=== PATIENT | female | born 1935 | race Caucasian/White ===

== ENCOUNTER 2016-12-27 10:13 | Inpatient (IN) | payer MEDICARE, OTHER ==
[~2016-12-27] VITALS: Ht 165.1 cm; Wt 109.8 kg
[~2016-12-27 10:13] MED LIST: HEPARIN 1,000 UNITS/ML 10ML VIAL (FOR RADIOLOGY& DIALYSIS ONLY) As Ordered ONE; ISOVUE-300 61% 50ML VIAL (Q9967) As Ordered ONE; LIDOCAINE 2% MDV 20 ML VIAL As Ordered ONE; MIDAZOLAM INJ 2 MG/2 ML VIAL (J2250) As Ordered ONE; PROTAMINE SULF INJ 50 MG/5 ML VIAL (J2720) As Ordered ONE; fentaNYL 100 MCG/2 ML INJECTION (J3010) As Ordered ONE
[2016-12-27] MEDS ORDERED: ISOVUE-300 61% 50ML VIAL (Q9967) As Ordered ONE (10:46)
[2016-12-27] MEDS ORDERED: LIDOCAINE 2% MDV 20 ML VIAL As Ordered ONE (11:03)
[2016-12-27] MEDS ORDERED: fentaNYL 100 MCG/2 ML INJECTION (J3010) As Ordered ONE (11:03)
[2016-12-27] MEDS ORDERED: MIDAZOLAM INJ 2 MG/2 ML VIAL (J2250) As Ordered ONE (11:03)
[2016-12-27 14:20] VITALS: BP 144/95
[2016-12-27] MEDS: PIPERACILLIN/TAZOBACTAM SOD 3.375 GM in D5W MINI-BAG PLUS 50 ML IV SCH ×2 (14:58→18:37)
[2016-12-27] MEDS: NORCO, ANEXSIA 5/325MG TABLET (HYDROcodone/ACETAMINOPHEN) PO PRN (14:58)
[2016-12-27] MEDS ORDERED: INSUHUMDS SC (15:40)
[2016-12-27] MEDS ORDERED: GABA-279 PO (15:40)
[2016-12-27] MEDS ORDERED: ASPI325T24 PO (15:40)
[2016-12-27] MEDS ORDERED: ZOCO40TA PO (15:40)
[2016-12-27] MEDS ORDERED: GLIP5TAB8 PO (15:40)
[2016-12-27] MEDS ORDERED: LISI-542 PO (15:40)
[2016-12-27] MEDS ORDERED: SENN8.6T7 PO (15:40)
[2016-12-27] MEDS ORDERED: METO25TA4 PO (15:40)
[2016-12-27] MEDS ORDERED: INSULANT SC (15:40)
[2016-12-27] MEDS ORDERED: FURO40TA2 PO (15:40)
[2016-12-27] MEDS ORDERED: SPIR25TA2 PO (15:40)
[2016-12-27] MEDS ORDERED: TYLE325T5 PO (15:40)
[2016-12-27] MEDS ORDERED: LEVO75TA34 PO (15:40)
[2016-12-27 16:59] LABS: BASO % 0.3 % (0.0-1.0); EOS # 0.2 K/mm3 (0.0-0.50); EOS % 1.9 % (0.0-3.0); LARGE UNSTAINED CELL # 0.1 K/mm3 (0.0-0.4); LARGE UNSTAINED CELL % 1.1 % (0.0-4.0); LYMPH # 1.8 K/mm3 (1.5-4.5); LYMPH % 15.1 % (24.0-44.0); MEAN CORPUSCULAR HEMOGLOBIN 32.3 pg (27.0-33.0); MEAN CORPUSCULAR HGB CONC 33.3 g/dl (32.0-36.5); MEAN CORPUSCULAR VOLUME 96.8 fl (80.0-96.0); MONO # 0.5 K/mm3 (0.0-0.8); NEUTROPHILS # 8.7 K/mm3 (1.8-7.7); NEUTROPHILS % 77.5 % (36.0-66.0); PLATELET COUNT, AUTOMATED 338 k/mm3 (150-450); RED CELL DISTRIBUTION WIDTH 12.3 % (11.5-14.5); WHITE BLOOD COUNT 11.2 K/mm3 (4.0-10.0)
[2016-12-27 17:24] LABS: ALBUMIN/GLOBULIN RATIO 0.86 (1.00-1.93); BILIRUBIN,TOTAL 0.4 MG/DL (0.2-1.0); CALCIUM LEVEL 8.8 MG/DL (8.8-10.2); CREATININE FOR GFR 1.37 MG/DL (0.55-1.02); GLOMERULAR FILTRATION RATE 39.5 (>32); TOTAL PROTEIN 6.5 GM/DL (6.4-8.2)
[2016-12-27 17:27] LABS: POTASSIUM SERUM 5.2 MEQ/L (3.5-5.1)
[2016-12-27] MEDS ORDERED: GLUCAGON FOR INJ 1 MG VIAL (J1610) SC PRN ×2 (18:00→18:30)
[2016-12-27] MEDS ORDERED: GLUCOSE 4 GM CHEW TABLET PO PRN ×2 (18:00→18:30)
[2016-12-27] MEDS ORDERED: DEXTROSE 50% 50 ML SYRINGE IV PRN ×2 (18:00→18:30)
[2016-12-27] MEDS: FUROSEMIDE 40 MG TAB PO SCH ×2 (21:00→23:02)
[2016-12-27 22:00] VITALS: BP 140/67
[2016-12-27] MEDS: SIMVASTATIN 40 MG TAB PO SCH (23:00)
[2016-12-27] MEDS: GABAPENTIN 100 MG CAP PO SCH (23:01)
[2016-12-27] MEDS: ACETAMINOPHEN 325 MG TAB PO SCH (23:01)
[2016-12-27] MEDS: HumaLOG INSULIN (NovoLOG) PER UNIT SC SCH (23:03)
[2016-12-27] MEDS: METOPROLOL TART 25 MG TABLET PO SCH (23:03)
[2016-12-27] MEDS: LEVEMIR (INSULIN DETEMIR) 1 UNITS/0.01ML SC SCH (23:04)
[2016-12-28] MEDS: PIPERACILLIN/TAZOBACTAM SOD 3.375 GM in D5W MINI-BAG PLUS 50 ML IV SCH ×4 (02:01→17:41)
[2016-12-28 06:00] VITALS: BP 143/68
[2016-12-28] MEDS: LEVOTHYROXINE 75MCG TABLET (0.075MG) PO SCH (06:44)
[2016-12-28] MEDS: NORCO, ANEXSIA 5/325MG TABLET (HYDROcodone/ACETAMINOPHEN) PO PRN (07:45)
[2016-12-28] MEDS: HumaLOG INSULIN (NovoLOG) PER UNIT SC SCH ×4 (08:45→21:00)
[2016-12-28] MEDS ORDERED: MORPHINE 2 MG/ML 1ML SYRINGE As Ordered ONE (09:01)
[2016-12-28] MEDS: ASPIRIN ENTERIC 325 MG TAB PO SCH (09:04)
[2016-12-28] MEDS: METOPROLOL TART 25 MG TABLET PO SCH ×2 (09:04→20:35)
[2016-12-28] MEDS: MORPHINE 2 MG/ML 1ML SYRINGE IV PRN (09:04)
[2016-12-28] MEDS: ACETAMINOPHEN 325 MG TAB PO SCH ×2 (09:05→20:30)
[2016-12-28] MEDS: LISINOPRIL 5 MG TAB PO SCH (09:05)
[2016-12-28] MEDS: FUROSEMIDE 40 MG TAB PO SCH ×2 (09:05→20:35)
[2016-12-28] MEDS: SPIRONOLACTONE 25 MG TAB PO SCH (09:05)
[2016-12-28] MEDS: glipiZIDE (GLUCOTROL) 5 MG TAB PO SCH (09:05)
[2016-12-28] MEDS: SENOKOT S TAB PO SCH (09:06)
--- NOTE | 2016-12-28 12:14 | HPEPDOC ---
General Date of Admission Dec 27, 2016 at 12:49 Attending Physician: Dallas hSi MD Chief Complaint Left heel gangrene and left lower extremity cellulitis. Source: Patient, Family, Old records Exam Limitations: No limitations History of Present Illness Patient is a 81-year-old female who developed a left heel ulcer and gangrene as well as gangrenous ulcer on the tip of the left first toe after a myocardial infarction in November 2015. Patient was referred for evaluation of her arterial inflow to her left lower extremity. Patient underwent an angiogram which showed superficial femoral artery occlusion with reconstitution of the above-knee popliteal artery. The patient's left heel wound was evaluated prior to the angiogram and was noted to be foul-smelling and have a significant amount of gangrenous chronic tissue. The patient also has evidence of venous insufficiency in both lower extremities. And there is some mild redness in the right lower extremity but not as significant as in the left which is cellulitic. After the angiogram was discussed with the patient and her family about being admitted to the hospital undergoing a left heel debridement to which they agreed. Home Medications Scheduled Acetaminophen (Tylenol) 325 Mg Tab, 650 MG PO BID, (Reported) Aspirin (Aspirin EC) 325 Mg Tabec, 325 MG PO DAILY, (Reported) Docusate Sod/Senna (Senna S 8.6-50 mg) 1 Tab Tab, 1 TAB PO DAILY, (Reported) Furosemide (Furosemide) 40 Mg Tab, 40 MG PO BID, (Reported) Gabapentin (Gabapentin) 100 Mg Cap, 200 MG PO QHS, (Reported) Glipizide (Glipizide) 5 Mg Tab, 5 MG PO DAILY, (Reported) Insulin Glargine (Lantus) 1 Units/0.01 Ml Susp, 40 UNITS SC QHS, (Reported) Insulin Human Lispro (Humalog) 1 Units/0.01 Ml Inj, 0 SC TID, (Reported) PER SLIDING SCALE Levothyroxine Sodium (Levoxyl) 75 Mcg Tab, 75 MCG PO DAILY, (Reported) Lisinopril (Lisinopril) 5 Mg Tab, 5 MG PO DAILY, (Reported) Metoprolol Tartrate (Metoprolol Tartrate) 25 Mg Tab, 25 MG PO BID, (Reported) Simvastatin - High Dose (Zocor) 40 Mg Tab, 40 MG PO QHS, (Reported) Spironolactone (Spironolactone) 25 Mg Tab, 25 MG PO DAILY, (Reported) Allergies Coded Allergies: NUTS (Verified Allergy, Severe, Throat Closes , 12/27/16) Ciprofloxacin (Verified Allergy, Intermediate, rash , 12/27/16) Past Medical History Medical History Coronary artery disease Myocardial infarction 11/19/2015 Congestive heart failure Hypertension Chronic renal insufficiency Peripheral arterial disease Venous insufficiency Hypothyroidism Diabetes mellitus Anemia Mcgregor vitamin D deficiency Depression Anxiety Surgical History Coronary artery bypass grafting with three-vessel bypass using vein from the left lower extremity Exploratory laparotomy with lysis of adhesions Back surgery Appendectomy Family History Significant Family History: Diabetes, Heart disease, Vascular disease Father has a history of abdominal aortic aneurysm Mother has a history of diabetes mellitus Brother has a history of coronary artery disease Social History * Smoker: Denies, non-smoker Alcohol: Denies Psychosocial History: No pertinent psych hx Review of Symptoms Constitutional: Denies: Chills, Fever, Malaise, Night Sweats, Weakness, Fatigue , Weight Loss, Lethargy, Other Eyes: Denies: Pain, Vision change, Conjunctivae inflammation, Eyelid inflammation, Redness, Other ENT: Denies: Head Aches, Ear Pain, Dysphagia, Sinus Congestion, Post Nasal Drip , Sore Throat, Epistaxis, Other Symptoms Skin: Denies: Rash, Lesions, Jaundice, Bruising, Itching, Dry, Breakdown, Nail Changes, Other Pulmonary: Denies: Dyspnea, Cough, Pleuritic Chest Pain, Other Symptoms Cardiovascular: Denies: Chest Pain, Palpitations, Orthopnea, Paroxysmal Noc. Dyspnea, Edema, Lt Headedness, Other Symptoms Gastrointestinal: Denies: Nausea, Vomiting, Abdominal Pain, Diarrhea, Constipation, Melena, Hematochezia, Other Symptoms Genitourinary: Denies: Dysuria, Frequency, Incontinence, Hematuria, Retention, Other Symptoms Hematologic: Denies: Bruising, Bleeding Excessively, Petecchia, Purpura, Enlarged Lymph Nodes, Other Hematologic Endocrine: Denies: Polydipsia, Polyphagia, Polyuria, Heat Intolerance, Cold Intolerance, Other Endocrine Sx Musculoskeletal: Reports: Neck Pain, Back Pain, Shoulder Pain, Arm Pain, Hand Pain, Leg Pain, Foot Pain, Joint Pain, Muscle Pain, Spasms, Other Symptoms ( swelling in the lower extremities) Neurological: Denies: Weakness, Numbness, Incoordination, Change in speech, Confusion, Seizures, Other Symptoms Psych: Denies: Mood Normal, Anxiety, Depression, Memory Issues, Thoughts of Self Harm, Anger, Thoughts of Harming Other, Other Psych Physical Examination General Exam: Positive: Alert, Cooperative Eye Exam: Positive: PERRLA, EOMI ENT Exam: Positive: Atraumatic, Mucous membr. moist/pink, Pharynx Normal Neck Exam: Positive: Supple, +2 carotid pulse wo bruit Chest Exam: Positive: Clear to auscultation Heart Exam: Positive: Rate Normal, Regular Rhythm Telemetry: Positive: No significant arrhythmia Abdomen Exam: Positive: Normal bowel sounds, Soft Extremity Exam: Positive: Edema, Other (patient with nonpalpable pulses in the bilateral lower extremities) Skin Exam: Positive: Nl turgor and temperature Neuro Exam: Positive: Normal Speech, Cranial Nerves 3-12 NL Psych Exam: Positive: Mental status NL Other physical findings Left heel shows necrotic gangrenous tissue with cellulitis in the left lower extremity. There is an ulcer at the tip of the left first toe which is dry with no signs of infection. Vital Signs Vital Signs Date Time Temp Pulse Resp B/P (MAP) Pulse Ox O2 Delivery O2 Flow Rate FiO2 12/28/16 09:24 16 12/28/16 09:05 143/68 12/28/16 09:04 68 12/28/16 06:00 97.6 95 Room Air Laboratory Data Labs 24H Laboratory Tests 2 12/27/16 14:10: Bedside Glucose (Misc Panel) 74L 12/27/16 16:31: White Blood Count 11.2H, Red Blood Count 2.98L, Hemoglobin 9.6L, Hematocrit 28.9L, Mean Corpuscular Volume 96.8H, Mean Corpuscular Hemoglobin 32.3, Mean Corpuscular Hemoglobin Concent 33.3, Red Cell Distribution Width 12.3, Platelet Count 338, Neutrophils (%) (Auto) 77.5H, Lymphocytes (%) (Auto) 15.1L, Monocytes (%) (Auto) 4.0, Eosinophils (%) (Auto) 1.9, Basophils (%) (Auto) 0.3, Neutrophils # (Auto) 8.7H, Lymphocytes # (Auto) 1.8, Monocytes # (Auto) 0.5, Eosinophils # (Auto) 0.2, Basophils # (Auto) 0.0, Large Unclassified Cells % 1.1 , Large Unclassified Cells # 0.1, Anion Gap 7L, Glomerular Filtration Rate 39.5 , Blood Urea Nitrogen 45H, Creatinine 1.37H, Sodium Level 141, Potassium Level 5.2H, Chloride Level 104, Carbon Dioxide Level 30, Calcium Level 8.8, Aspartate Amino Transf (AST/SGOT) 11L, Alanine Aminotransferase (ALT/SGPT) 16, Alkaline Phosphatase 77, Total Bilirubin 0.4, Total Protein 6.5, Albumin 3.0L, Albumin/ Globulin Ratio 0.86L 12/27/16 17:00: Bedside Glucose (Misc Panel) 193H 12/27/16 20:37: Bedside Glucose (Misc Panel) 263H CBC/BMP Laboratory Tests 12/27/16 16:31 Red Blood Count 2.98 L, Mean Corpuscular Volume 96.8 H, Mean Corpuscular Hemoglobin 32.3, Mean Corpuscular Hemoglobin Concent 33.3, Red Cell Distribution Width 12.3, Neutrophils (%) (Auto) 77.5 H, Lymphocytes (%) (Auto) 15.1 L, Monocytes (%) (Auto) 4.0, Eosinophils (%) (Auto) 1.9, Basophils (%) ( Auto) 0.3, Neutrophils # (Auto) 8.7 H, Lymphocytes # (Auto) 1.8, Monocytes # ( Auto) 0.5, Eosinophils # (Auto) 0.2, Basophils # (Auto) 0.0, Calcium Level 8.8, Aspartate Amino Transf (AST/SGOT) 11 L, Alanine Aminotransferase (ALT/SGPT) 16, Alkaline Phosphatase 77, Total Bilirubin 0.4, Total Protein 6.5, Albumin 3.0 L Assessment/Plan Patient is an 81-year-old female with gangrenous nonhealing left heel wound that requires surgical debridement. Patient underwent an angiogram which showed superficial femoral arterial occlusive disease and the options of possible bypass grafting were discussed with the patient's family were considering the options. The patient will be admitted to the hospital and undergo antibiotic therapy due to the cellulitis in the left lower extremity and subsequent debridement of the left heel secondary to the gangrene and necrotic tissue. 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 The patient and her family are considering the options regarding possible bypass surgery for revascularization of the left lower extremity. Dallas Shi MD Dec 28, 2016 12:14
[2016-12-28] MEDS ORDERED: DEXTROSE 50% 50 ML SYRINGE IV STA (13:30)
[2016-12-28] MEDS ORDERED: MIDAZOLAM INJ 2 MG/2 ML VIAL (J2250) As Ordered ONE (14:55)
[2016-12-28] MEDS ORDERED: KETAMINE HCL 200 MG/20 ML VIAL As Ordered ONE (14:55)
[2016-12-28] MEDS ORDERED: PROPOFOL 200 MG/20 ML VIAL As Ordered ONE (14:58)
[2016-12-28] MEDS ORDERED: LIDOCAINE 2% INJ 100 MG/5 ML SDV (FOR ANES.) As Ordered ONE (14:58)
[2016-12-28] MEDS ORDERED: fentaNYL 100 MCG/2 ML INJECTION (J3010) As Ordered ONE (15:03)
[2016-12-28] MEDS: fentaNYL 100 MCG/2 ML INJECTION (J3010) IV PRN ×2 (15:05→15:10)
[2016-12-28] MEDS ORDERED: ONDANSETRON 4MG/2ML VIAL (J2405) IV PRN (15:15)
[2016-12-28] MEDS ORDERED: LR 1,000 ML IV SCH (15:15)
[2016-12-28 16:15] VITALS: BP 143/65
[2016-12-28 16:45] VITALS: BP 150/70
[2016-12-28 17:01] LABS: MEAN CORPUSCULAR HGB CONC 32.7 g/dl (32.0-36.5); MEAN CORPUSCULAR VOLUME 97.6 fl (80.0-96.0); RED CELL DISTRIBUTION WIDTH 12.3 % (11.5-14.5); WHITE BLOOD COUNT 9.1 K/mm3 (4.0-10.0)
[2016-12-28 17:15] LABS: CALCIUM LEVEL 8.8 MG/DL (8.8-10.2); CREATININE FOR GFR 1.56 MG/DL (0.55-1.02)
[2016-12-28 17:30] VITALS: BP 146/67
[2016-12-28] MEDS: GABAPENTIN 100 MG CAP PO SCH (20:30)
[2016-12-28] MEDS: SIMVASTATIN 40 MG TAB PO SCH (20:30)
[2016-12-28] MEDS: LEVEMIR (INSULIN DETEMIR) 1 UNITS/0.01ML SC SCH (20:36)
[2016-12-28 22:00] VITALS: BP 149/62
[2016-12-29] MEDS ORDERED: PIPERACILLIN/TAZOBACTAM SOD 3.375 GM in D5W MINI-BAG PLUS 50 ML IV SCH ×2
[2016-12-29] MEDS: PIPERACILLIN/TAZOBACTAM SOD 3.375 GM in D5W MINI-BAG PLUS 50 ML IV SCH ×2 (01:00→02:27)
[2016-12-29 02:00] VITALS: BP 143/65
[2016-12-29] MEDS: LEVOTHYROXINE 75MCG TABLET (0.075MG) PO SCH (05:38)
[2016-12-29 06:00] VITALS: BP 130/54
[2016-12-29 06:28] LABS: MEAN CORPUSCULAR HEMOGLOBIN 32.7 pg (27.0-33.0); MEAN CORPUSCULAR HGB CONC 33.4 g/dl (32.0-36.5); MEAN CORPUSCULAR VOLUME 97.7 fl (80.0-96.0); RED CELL DISTRIBUTION WIDTH 12.2 % (11.5-14.5)
[2016-12-29 06:55] LABS: CALCIUM LEVEL 8.3 MG/DL (8.8-10.2); CREATININE FOR GFR 1.44 MG/DL (0.55-1.02); GLOMERULAR FILTRATION RATE 37.3 (>32); POTASSIUM SERUM 4.9 MEQ/L (3.5-5.1)
[2016-12-29] MEDS: HumaLOG INSULIN (NovoLOG) PER UNIT SC SCH ×4 (08:49→20:52)
[2016-12-29] MEDS: LISINOPRIL 5 MG TAB PO SCH (08:50)
[2016-12-29] MEDS: SPIRONOLACTONE 25 MG TAB PO SCH (08:50)
[2016-12-29] MEDS: NORCO, ANEXSIA 5/325MG TABLET (HYDROcodone/ACETAMINOPHEN) PO PRN ×2 (08:50→17:32)
[2016-12-29] MEDS: ASPIRIN ENTERIC 325 MG TAB PO SCH (08:50)
[2016-12-29] MEDS: ACETAMINOPHEN 325 MG TAB PO SCH ×2 (08:50→21:22)
[2016-12-29] MEDS: glipiZIDE (GLUCOTROL) 5 MG TAB PO SCH (08:51)
[2016-12-29] MEDS: FUROSEMIDE 40 MG TAB PO SCH ×2 (08:51→21:24)
[2016-12-29] MEDS: SENOKOT S TAB PO SCH (08:51)
[2016-12-29] MEDS: AUGMENTIN 500 MG TAB PO SCH ×2 (08:51→21:24)
[2016-12-29] MEDS: METOPROLOL TART 25 MG TABLET PO SCH ×2 (08:51→21:21)
[2016-12-29 10:00] VITALS: BP 140/64
[2016-12-29 14:00] VITALS: BP 135/66
[2016-12-29] MEDS ORDERED: DEXTROSE 50% 50 ML SYRINGE ONE (14:38)
[2016-12-29 18:00] VITALS: BP 132/61
[2016-12-29] MEDS: LEVEMIR (INSULIN DETEMIR) 1 UNITS/0.01ML SC SCH (21:00)
[2016-12-29] MEDS: SIMVASTATIN 40 MG TAB PO SCH (21:21)
[2016-12-29] MEDS: GABAPENTIN 100 MG CAP PO SCH (21:23)
--- NOTE | 2016-12-29 21:56 | IPNPDOC ---
Date Seen The patient was seen on 12/29/16. Progress Note SUBJECTIVE: Patient is without complaints. OBJECTIVE PHYSICAL EXAMINATION: VITAL SIGNS: Please see below. GENERAL: Lying in bed comfortably HEENT: Normal CARDIOVASCULAR: Regular rate and rhythm. RESPIRATORY: Clear to auscultation bilaterally. ABDOMINAL: Soft nontender nondistended EXTREMITIES: Both lower extremities perfused. Left heel wound dressed and clean. NEUROLOGICAL: Awake alert oriented x3 PSYCHOLOGICAL: Normal LABORATORY DATA: Please see below. MICROBIOLOGY: Please see below. ASSESSMENT AND PLAN: This is a 81-year-old female with a left heel pressure ulcer as well as occlusive disease in her femoral artery. Patient underwent debridement of the left heel with an extensive amount of tissue loss and bone exposure. PROBLEMS: 1. left heel ulcer is nonhealing: Patient has superficial femoral arterial occlusive disease and a nonhealing left heel ulcer with extensive tissue loss and bone exposure. The patient is not ambulatory at this time. We'll need to discuss with the patient and her family the options of either amputation or bypass grafting. VS, [facility]&O[facility] Vital Signs/I&O Vital Signs Date Time Temp Pulse Resp B/P (MAP) Pulse Ox O2 Delivery O2 Flow Rate FiO2 12/29/16 21:21 70 137/61 12/29/16 18:17 18 12/29/16 18:00 98.8 100 Nasal Cannula 2.0 I&O- Last 24 Hours up to 6 AM 12/29/16 06:00 Intake Total 630 ml Output Total 400 ml Balance 230 ml Laboratory Data 24H LABS Laboratory Tests 2 12/29/16 06:16: Anion Gap 9, Glomerular Filtration Rate 37.3, Blood Urea Nitrogen 39H, Creatinine 1.44H, Sodium Level 141, Potassium Level 4.9, Chloride Level 105, Carbon Dioxide Level 27, Calcium Level 8.3L 12/29/16 11:47: Bedside Glucose (Misc Panel) 223H 12/29/16 17:05: Bedside Glucose (Misc Panel) 184H 12/29/16 20:15: Bedside Glucose (Misc Panel) 217H CBC/BMP Laboratory Tests 12/29/16 06:16 Red Blood Count 2.73 L, Mean Corpuscular Volume 97.7 H, Mean Corpuscular Hemoglobin 32.7, Mean Corpuscular Hemoglobin Concent 33.4, Red Cell Distribution Width 12.2, Calcium Level 8.3 L Microbiology Microbiology 12/28/16 Wound Culture, Received Pending Dallas Shi MD Dec 29, 2016 21:56
[2016-12-29 22:00] VITALS: BP 137/61
[2016-12-29 23:18] LABS: MEAN CORPUSCULAR HEMOGLOBIN 32.2 pg (27.0-33.0); MEAN CORPUSCULAR HGB CONC 32.6 g/dl (32.0-36.5); MEAN CORPUSCULAR VOLUME 98.8 fl (80.0-96.0); RED CELL DISTRIBUTION WIDTH 12.4 % (11.5-14.5)
[2016-12-29 23:36] LABS: CALCIUM LEVEL 8.2 MG/DL (8.8-10.2); CREATININE FOR GFR 1.72 MG/DL (0.55-1.02); GLOMERULAR FILTRATION RATE 30.4 (>32); POTASSIUM SERUM 5.1 MEQ/L (3.5-5.1)
[2016-12-30 02:00] VITALS: BP 125/58
[2016-12-30] MEDS: NORCO, ANEXSIA 5/325MG TABLET (HYDROcodone/ACETAMINOPHEN) PO PRN ×4 (02:04→18:51)
[2016-12-30] MEDS: LEVOTHYROXINE 75MCG TABLET (0.075MG) PO SCH (05:39)
[2016-12-30 06:00] VITALS: BP 123/56
[2016-12-30 10:00] VITALS: BP 126/63
[2016-12-30] MEDS: HumaLOG INSULIN (NovoLOG) PER UNIT SC SCH ×4 (10:08→22:21)
[2016-12-30] MEDS: ACETAMINOPHEN 325 MG TAB PO SCH ×2 (10:08→22:13)
[2016-12-30] MEDS: SPIRONOLACTONE 25 MG TAB PO SCH (10:09)
[2016-12-30] MEDS: glipiZIDE (GLUCOTROL) 5 MG TAB PO SCH (10:09)
[2016-12-30] MEDS: AUGMENTIN 500 MG TAB PO SCH ×2 (10:09→22:14)
[2016-12-30] MEDS: LISINOPRIL 5 MG TAB PO SCH (10:09)
[2016-12-30] MEDS: ASPIRIN ENTERIC 325 MG TAB PO SCH (10:09)
[2016-12-30] MEDS: SENOKOT S TAB PO SCH (10:09)
[2016-12-30] MEDS: FUROSEMIDE 40 MG TAB PO SCH ×2 (10:10→22:14)
[2016-12-30] MEDS: METOPROLOL TART 25 MG TABLET PO SCH ×2 (10:10→22:15)
[2016-12-30 14:00] VITALS: BP 127/60
[2016-12-30 18:00] VITALS: BP 132/65
--- NOTE | 2016-12-30 19:22 | IPNPDOC ---
Date Seen The patient was seen on 12/30/16. Progress Note SUBJECTIVE: Patient is a without complaints. OBJECTIVE PHYSICAL EXAMINATION: VITAL SIGNS: Please see below. GENERAL: Lying in bed comfortably HEENT: Normal CARDIOVASCULAR: Regular rate and rhythm. RESPIRATORY: Clear to auscultation bilaterally. ABDOMINAL: Soft nontender nondistended EXTREMITIES: Left lower extremity is perfused with good capillary refill. The left heel ulcer shows no signs of healing with exposed calcaneus. NEUROLOGICAL: Awake, alert and oriented x3 with no focal deficits PSYCHOLOGICAL: Normal LABORATORY DATA: Please see below. MICROBIOLOGY: Please see below. IMAGING: Patient underwent angiogram showing the left superficial femoral artery occlusion with reconstitution of the above-knee popliteal artery via collaterals from the profunda femoris. Echocardiogram: Pending 12/31/2016. DVT prophylaxis ordered?: Mechanical ASSESSMENT AND PLAN: This is a 81-year-old female with femoral arterial occlusive disease in the left lower extremity and nonhealing left heel ulcer with gangrene as well as left first toe ulcer at the tip of the toe. Patient also has venous hypertension with stigmata of venous insufficiency in the bilateral lower extremities. PROBLEMS: 1. left superficial femoral arterial atherosclerotic occlusive disease with gangrene of the tip of the left first toe and heel both of which have been nonhealing: The patient has infection in the left heel and extensive tissue loss with exposed bone. I discussed the options with the patient. The first option would was discussed with the patient was no intervention with continued conservative management and wound care. The second option was a femoral to popliteal artery bypass graft. The third option was amputation with an above- knee amputation. After discussing the options in detail with the patient, she wishes to proceed with a femoral to popliteal artery bypass graft in an attempt to salvage her left lower extremity and heel her left heel wound. Risks benefits and alternative treatment options were discussed with the patient. Benefits included but were not limited to improve blood flow with healing of the ulcers and ability to ambulate. Alternative treatment options included but were not limited to no intervention. Risks included but were not limited to infection, renal failure requiring hemodialysis, bleeding, possible need for open surgical intervention, cerebrovascular accident, myocardial infarction, pulmonary embolus, DVT, loss of limb, loss of life and poor outcome. I also discussed with the patient that even with a bypass graft and improve blood flow the heel wound may not heal due to the exposed bone and extensive tissue loss. The patient's questions were all answered. Patient voices understanding of these risks, accepts these risks and agrees to proceed with a left femoral to popliteal artery bypass graft. DISPOSITION: . VS, I&O, 24H, Fishbone Vital Signs/I&O Vital Signs Date Time Temp Pulse Resp B/P (MAP) Pulse Ox O2 Delivery O2 Flow Rate FiO2 12/30/16 18:51 20 12/30/16 18:00 98.8 70 132/65 (87) 98 Room Air 12/30/16 02:00 2.0 I&O- Last 24 Hours up to 6 AM 12/30/16 05:59 Intake Total 1440 ml Output Total 1000 ml Balance 440 ml Laboratory Data 24H LABS Laboratory Tests 2 12/29/16 20:15: Bedside Glucose (Misc Panel) 217H 12/29/16 23:00: Bedside Glucose (Misc Panel) 276H 12/29/16 23:08: Anion Gap 7L, Glomerular Filtration Rate 30.4L, Blood Urea Nitrogen 50H, Creatinine 1.72H, Sodium Level 138, Potassium Level 5.1, Chloride Level 103, Carbon Dioxide Level 28, Calcium Level 8.2L 12/30/16 06:13: Bedside Glucose (Misc Panel) 222H 12/30/16 12:15: Bedside Glucose (Misc Panel) 213H CBC/BMP Laboratory Tests 12/29/16 23:08 Red Blood Count 2.63 L, Mean Corpuscular Volume 98.8 H, Mean Corpuscular Hemoglobin 32.2, Mean Corpuscular Hemoglobin Concent 32.6, Red Cell Distribution Width 12.4, Calcium Level 8.2 L Microbiology Microbiology 12/28/16 Wound Culture, Received Pending Dallas Shi MD Dec 30, 2016 19:22
[2016-12-30 22:00] VITALS: BP 114/53
[2016-12-30] MEDS: SIMVASTATIN 40 MG TAB PO SCH (22:13)
[2016-12-30] MEDS: GABAPENTIN 100 MG CAP PO SCH (22:14)
[2016-12-31] MEDS: LEVOTHYROXINE 75MCG TABLET (0.075MG) PO SCH (05:20)
[2016-12-31 06:00] VITALS: BP 127/60
[2016-12-31 06:42] LABS: CALCIUM LEVEL 8.2 MG/DL (8.8-10.2); CREATININE FOR GFR 1.5 MG/DL (0.55-1.02); GLOMERULAR FILTRATION RATE 35.6 (>32); POTASSIUM SERUM 5.1 MEQ/L (3.5-5.1)
[2016-12-31] MEDS: AUGMENTIN 500 MG TAB PO SCH (08:12)
[2016-12-31] MEDS: HumaLOG INSULIN (NovoLOG) PER UNIT SC SCH ×4 (08:12→21:00)
[2016-12-31] MEDS: ASPIRIN ENTERIC 325 MG TAB PO SCH (08:12)
[2016-12-31] MEDS: LISINOPRIL 5 MG TAB PO SCH (08:12)
[2016-12-31] MEDS: ACETAMINOPHEN 325 MG TAB PO SCH ×2 (08:12→21:04)
[2016-12-31] MEDS: FUROSEMIDE 40 MG TAB PO SCH ×2 (08:13→21:05)
[2016-12-31] MEDS: METOPROLOL TART 25 MG TABLET PO SCH ×2 (08:13→21:04)
[2016-12-31] MEDS: SPIRONOLACTONE 25 MG TAB PO SCH (08:13)
[2016-12-31] MEDS: NORCO, ANEXSIA 5/325MG TABLET (HYDROcodone/ACETAMINOPHEN) PO PRN ×2 (08:13→12:40)
[2016-12-31] MEDS: SENOKOT S TAB PO SCH (08:13)
[2016-12-31] MEDS ORDERED: THROMBIN SOLN 20,000 UNITS KIT As Ordered ONE (13:55)
[2016-12-31] MEDS ORDERED: LIDOCAINE 1% SDV INJ 30 ML VIAL As Ordered ONE (13:55)
[2016-12-31] MEDS ORDERED: BUPIVACAINE HCL 0.5% 30 ML VIAL As Ordered ONE (13:56)
[2016-12-31] MEDS ORDERED: HEPARIN SOD (PORCINE) 5000 UNITS/ML VIAL As Ordered ONE (13:56)
[2016-12-31 14:00] VITALS: BP 118/54
[2016-12-31] MEDS ORDERED: PROPOFOL 200 MG/20 ML VIAL As Ordered ONE (14:01)
[2016-12-31] MEDS ORDERED: ONDANSETRON 4MG/2ML VIAL (J2405) As Ordered ONE ×2 (14:01→17:17)
[2016-12-31] MEDS ORDERED: LIDOCAINE 2% INJ 100 MG/5 ML SDV (FOR ANES.) As Ordered ONE (14:01)
[2016-12-31] MEDS ORDERED: ROCURONIUM BROMIDE 50 MG/5 ML VIAL/SYRINGE As Ordered ONE (14:01)
[2016-12-31] MEDS ORDERED: MIDAZOLAM INJ 2 MG/2 ML VIAL (J2250) As Ordered ONE (14:02)
[2016-12-31] MEDS ORDERED: fentaNYL 100 MCG/2 ML INJECTION (J3010) As Ordered ONE ×2 (14:04→17:15)
--- NOTE | 2016-12-31 15:03 | ECGEPIP ---
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 No prior ECG available for comparison at the time of interpretation. Electronically Signed On 12-31-2016 15:02:46 EDT by Dimitris Flanagan
[2016-12-31] MEDS ORDERED: ZOSYN 3.375 GM VIAL (J2543) As Ordered ONE (15:10)
[2016-12-31] MEDS ORDERED: GLYCOPYRROLATE INJ 0.2 MG/ML 2 ML VIAL As Ordered ONE (17:17)
[2016-12-31] MEDS ORDERED: NEOSTIGMINE 1MG/ML 5 ML SYRINGE (J2710) As Ordered ONE (17:17)
[2016-12-31] MEDS ORDERED: ePHEDrine SULFATE 25 MG/5 ML(5MG/ML) SYRINGE As Ordered ONE (17:23)
[2016-12-31] MEDS ORDERED: PHENYLephrine HCL 500 MCG/5 ML (100MCG/ML) SYRINGE (J2370) As Ordered ONE (17:43)
[2016-12-31] MEDS: SODIUM CHLORIDE 0.9% INJ 10 ML SYR IV SCH (18:00)
--- NOTE | 2016-12-31 18:55 | REP ---
Procedure: PICC line insertion with Lesia The procedure was performed under the direct supervision of Dr. Christian. The risks and benefits of the procedure were explained to the patient and informed consent was obtained. The right basilic vein was localized using ultrasound guidance. The skin was prepped and draped in a sterile fashion. 2% lidocaine was used as a local anesthetic. Using ultrasound guidance the basilic vein was cannulated and a 0.018 guidewire was inserted and advanced to the SVC using fluoroscopic guidance. The needle was removed and a 5.5 Slovak dilator and peel-away sheath was inserted over the guide wire. A 5.5 Slovak dual lumen catheter was cut to length of 43 cm. The dilator was removed and the catheter was inserted over the guide wire, however, it could not be advanced beyond the axillary region. This may have been due to venous spasm. Multiple attempts were tried, but unsuccessful. The right brachial vein was then localized using ultrasound guidance. 2% lidocaine was used as a local anesthetic. Using ultrasound guidance the brachial vein was cannulated and a 0.018 guidewire was inserted and advanced to the SVC. The 43 cm, dual lumen catheter was then inserted and advanced with the tip ending in the SVC. The peel-away sheath was removed and the catheter was flushed with heparinized saline as per Hospital protocol. The catheter was affixed to the skin and a sterile dressing was applied. The the patient tolerated the procedure well and there were no immediate complications. 1.9 minutes of fluoro time was utilized for this procedure. Reviewed by ALBERTO Fields 12/31/2016 03:14 PSigned by Angel Christian MD 12/31/2016 06:46 P
[2016-12-31] MEDS ORDERED: ONDANSETRON 4MG/2ML VIAL (J2405) IV PRN (19:15)
[2016-12-31] MEDS ORDERED: fentaNYL 100 MCG/2 ML INJECTION (J3010) IV PRN (19:15)
[2016-12-31] MEDS ORDERED: LR 1,000 ML IV SCH (19:15)
[2016-12-31 20:00] VITALS: BP 145/29
[2016-12-31] MEDS: MORPHINE 2 MG/ML 1ML SYRINGE IV PRN ×2 (20:40→23:28)
[2016-12-31] MEDS: PIPERACILLIN/TAZOBACTAM SOD 3.375 GM in D5W MINI-BAG PLUS 50 ML IV SCH (21:04)
[2016-12-31] MEDS: GABAPENTIN 100 MG CAP PO SCH (21:05)
[2016-12-31] MEDS: SIMVASTATIN 40 MG TAB PO SCH (21:06)
[2016-12-31 22:00] VITALS: BP_SYST 107; BP_SYST 135; BP_DIAS 29; BP_DIAS 49
[2016-12-31 22:17] LABS: MEAN CORPUSCULAR HEMOGLOBIN 32.2 pg (27.0-33.0); MEAN CORPUSCULAR HGB CONC 32.6 g/dl (32.0-36.5); MEAN CORPUSCULAR VOLUME 98.9 fl (80.0-96.0); RED CELL DISTRIBUTION WIDTH 12.2 % (11.5-14.5)
[2017-01-01] VITALS (19 sets, daily range): BP systolic 90–161; BP diastolic 28–58
[2017-01-01] MEDS: PIPERACILLIN/TAZOBACTAM SOD 3.375 GM in D5W MINI-BAG PLUS 50 ML IV SCH ×2 (00:39→06:22)
[2017-01-01] MEDS: SODIUM CHLORIDE 0.9% INJ 10 ML SYR IV SCH ×2 (06:00→17:38)
[2017-01-01] MEDS: LEVOTHYROXINE 75MCG TABLET (0.075MG) PO SCH (06:19)
[2017-01-01 06:35] LABS: MEAN CORPUSCULAR HEMOGLOBIN 32.4 pg (27.0-33.0); MEAN CORPUSCULAR HGB CONC 32.8 g/dl (32.0-36.5); MEAN CORPUSCULAR VOLUME 98.9 fl (80.0-96.0); RED CELL DISTRIBUTION WIDTH 12.1 % (11.5-14.5); WHITE BLOOD COUNT 11.6 K/mm3 (4.0-10.0)
[2017-01-01 06:54] LABS: CALCIUM LEVEL 7.7 MG/DL (8.8-10.2); CREATININE FOR GFR 2.1 MG/DL (0.55-1.02); GLOMERULAR FILTRATION RATE 24.1 (>32)
[2017-01-01 06:56] LABS: POTASSIUM SERUM 6.6 MEQ/L (3.5-5.1)
[2017-01-01] MEDS ORDERED: HumuLIN R (REGULAR) INSULIN (NovoLIN R) **100U/ML** PER UNIT IV STA (07:20)
[2017-01-01] MEDS ORDERED: CALCIUM GLUCONATE 1,000 MG in D5W MINI-BAG PLUS 100 ML IV ONE ×2 (07:30→08:30)
[2017-01-01] MEDS ORDERED: SOD POLYSTYRENE SULFONATE SUSP 15 GM/60 ML UD PO ONE (08:00)
[2017-01-01] MEDS: FUROSEMIDE 40 MG TAB PO SCH (08:30)
[2017-01-01] MEDS: SENOKOT S TAB PO SCH (08:30)
[2017-01-01] MEDS: ACETAMINOPHEN 325 MG TAB PO SCH ×3 (08:31→21:17)
[2017-01-01] MEDS: ASPIRIN ENTERIC 325 MG TAB PO SCH (08:31)
[2017-01-01] MEDS: SPIRONOLACTONE 25 MG TAB PO SCH (08:31)
[2017-01-01] MEDS: LISINOPRIL 5 MG TAB PO SCH (08:44)
[2017-01-01] MEDS: METOPROLOL TART 25 MG TABLET PO SCH ×3 (08:44→21:17)
[2017-01-01] MEDS: HumaLOG INSULIN (NovoLOG) PER UNIT SC SCH (08:50)
[2017-01-01] MEDS: ONDANSETRON 4MG/2ML VIAL (J2405) IV PRN ×2 (10:07→17:37)
[2017-01-01] MEDS: NS 1,000 ML IV SCH ×2 (11:36→21:17)
[2017-01-01 11:44] LABS: MAGNESIUM LEVEL 2.3 MG/DL (1.8-2.4); PHOSPHORUS LEVEL 4.3 MG/DL (2.5-4.9)
[2017-01-01] MEDS: INSULIN HUMAN REGULAR 100 UNITS in NS 99 ML IV SCH ×2 (12:10→21:10)
[2017-01-01] MEDS: PIPERACILLIN/TAZOBACTAM SOD 2.25 GM in D5W MINI-BAG PLUS 50 ML IV SCH ×2 (12:16→17:37)
[2017-01-01 12:43] LABS: CALCIUM LEVEL 8.3 MG/DL (8.8-10.2); CREATININE FOR GFR 2.21 MG/DL (0.55-1.02); GLOMERULAR FILTRATION RATE 22.7 (>32)
[2017-01-01 12:44] LABS: POTASSIUM SERUM 5.9 MEQ/L (3.5-5.1)
[2017-01-01] MEDS: INSULIN IV RATE CHANGE DOCUMENTATION ML/HR XX SCH ×2 (13:05→17:06)
[2017-01-01] MEDS: NORCO, ANEXSIA 5/325MG TABLET (HYDROcodone/ACETAMINOPHEN) PO PRN (13:48)
--- NOTE | 2017-01-01 20:44 | ECGEPIP ---
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 Electronically Signed On 01-01-2017 20:43:33 EDT by Dimitris Flanagan
[2017-01-01] MEDS: GABAPENTIN 100 MG CAP PO SCH ×2 (21:00→21:16)
[2017-01-01] MEDS: SIMVASTATIN 40 MG TAB PO SCH ×2 (21:00→21:17)
--- NOTE | 2017-01-01 22:38 | IPNPDOC ---
Date Seen The patient was seen on 01/01/17. Progress Note SUBJECTIVE: Patient is without complaints. OBJECTIVE PHYSICAL EXAMINATION: VITAL SIGNS: Please see below. GENERAL: Lying in bed in no apparent distress HEENT: Normal CARDIOVASCULAR: Regular rate and rhythm. RESPIRATORY: Clear to auscultation bilaterally. ABDOMINAL: Soft nontender nondistended EXTREMITIES: Left lower extremity is well-perfused, incisions are clean with dayana intact NEUROLOGICAL: Awake alert oriented x3 PSYCHOLOGICAL: Normal LABORATORY DATA: Please see below. MICROBIOLOGY: Please see below. ASSESSMENT AND PLAN: This is a 81-year-old female presented with left lower extremity and green and nonhealing ulcer of the left heel and left first toe who underwent a left femoral to above-knee popliteal artery bypass graft. Postoperatively patient has had acute on chronic renal failure, hyperkalemia, anemia secondary to acute blood loss and hyperglycemia. PROBLEMS: 1. left lower extremity gangrene and nonhealing heel ulcer: 4 extremities well perfused after undergoing a low left femoral to above-knee popliteal artery bypass graft. 2. renal failure: Patient has been evaluated and followed by the nephrology team. 3. hyperkalemia: Patient's glucoses being treated aggressively, patient received calcium gluconate and repeat BMP shows decreasing potassium. 4. Anemia: Patient is undergoing transfusion with 2 L of packed red blood cells. 5. Hyperglycemia: Patient is currently on an insulin drip. DISPOSITION: Patient remains in critical condition and requires continued ICU care.. VS, I&O, 24H, Fishbone Vital Signs/I&O Vital Signs Date Time Temp Pulse Resp B/P (MAP) Pulse Ox O2 Delivery O2 Flow Rate FiO2 01/01/17 20:00 97.1 72 16 122/57 (78) 95 Room Air 01/01/17 14:36 1.0 I&O- Last 24 Hours up to 6 AM 01/01/17 06:00 Intake Total 3055 ml Output Total 950 ml Balance 2105 ml Laboratory Data 24H LABS Laboratory Tests 2 01/01/17 04:18: Bedside Glucose (Misc Panel) 426H 01/01/17 06:12: Anion Gap 10, Glomerular Filtration Rate 24.1L, Blood Urea Nitrogen 54H, Creatinine 2.10H, Sodium Level 138, Potassium Level 6.6*H, Chloride Level 103, Carbon Dioxide Level 25, Calcium Level 7.7L 01/01/17 10:01: Bedside Glucose (Misc Panel) 426H 01/01/17 10:34: Urine Appearance CLEAR, Urine Color YELLOW, Urine pH 5.0, Urine Specific [place] 1.015, Urine Protein NEGATIVE, Urine Glucose (UA) 1+H, Urine Ketones NEGATIVE, Urine Urobilinogen 0.2, Urine Bilirubin NEGATIVE, Urine Leukocyte Esterase NEGATIVE, Urine Blood NEGATIVE, Urine Nitrite NEGATIVE, Urine WBC (Auto ) 0, Urine RBC (Auto) 0, Urine Hyaline Casts (Auto) 0, Urine Bacteria (Auto) NEGATIVE, Urine Squamous Epithelial Cells 0, Urine Sperm (Auto) , Urine Random Creatinine 61.0, Urine Random Sodium 36, Urine Random Chloride 68, Phosphorus Level 4.3, Magnesium Level 2.3, Total Creatine Kinase 109 01/01/17 12:00: Anion Gap 12, Glomerular Filtration Rate 22.7L, Blood Urea Nitrogen 56H, Creatinine 2.21H, Sodium Level 137, Potassium Level 5.9H, Chloride Level 101, Carbon Dioxide Level 24, Calcium Level 8.3L 01/01/17 13:02: Bedside Glucose (Misc Panel) 454H 01/01/17 15:01: Bedside Glucose (Misc Panel) 380H 01/01/17 16:13: Bedside Glucose (Misc Panel) 324H 01/01/17 17:03: Bedside Glucose (Misc Panel) 302H CBC/BMP Laboratory Tests 01/01/17 06:12 Red Blood Count 2.33 L, Mean Corpuscular Volume 98.9 H, Mean Corpuscular Hemoglobin 32.4, Mean Corpuscular Hemoglobin Concent 32.8, Red Cell Distribution Width 12.1, Calcium Level 7.7 L 01/01/17 12:00 Calcium Level 8.3 L Microbiology Microbiology 12/28/16 Wound Culture - Final, Complete Morganella Morganii Ssp Erasmo Enterococcus Faecalis Enterococcus Raffinosus Dallas Shi MD Jan 01, 2017 22:38
--- NOTE | 2017-01-01 22:57 | CR ---
DATE OF CONSULTATION: 01/01/2017 REQUESTING PHYSICIAN: Dr. Dallas Shi CONSULTING PHYSICIAN: Dr. Bose REASON FOR CONSULTATION: Management of acute kidney injury superimposed on chronic kidney disease and hyperkalemia. CHIEF COMPLAINT: Patient was admitted on 12/27/2016 because of left heel gangrene and left lower extremity cellulitis. HISTORY OF THE PRESENT ILLNESS: Ina Hernandez is an 81-year-old female with past medical history of chronic kidney disease stage III with a baseline creatinine on admission of 1.3, who was admitted on 12/27/2016 with a left heel ulcers and gangrene secondary to left leg ischemia. The patient got an angiogram done on 12/27/2016, which showed superficial femoral artery occlusion, so vascular surgery decided to do a femoral popliteal bypass. The patient got the bypass done yesterday. However, after the procedure, the patient's renal function got worse; creatinine went up from 1.5 at baseline to 2.1. Her potassium this morning was 6.6, so nephrology service was called for further help in the management of acute kidney injury superimposed on chronic kidney disease. The patient was seen and examined by me today, morning, in the intensive care unit (ICU). The patient was afebrile. She was hemodynamically stable, and she was able to provide history, and she was able to communicate with me. PAST MEDICAL HISTORY: The patient has a past medical history of chronic kidney disease stage III. Baseline creatinine of around 1.3 during this admission. The patient also gives a history of briefly requiring hemodialysis last year when she was admitted after an myocardial infarction (MO), which required coronary artery bypass grafting. She has a history of congestive heart failure. History of MO in November 2015. Peripheral vascular disease. Venous insufficiency. Hypothyroidism. Diabetes mellitus type 2. Depression and anxiety. PAST SURGICAL HISTORY: The patient is status post coronary artery bypass grafting last year. Status post exploratory laparotomy (ex lap) and lysis of adhesions. History of back surgery. Status post appendectomy. Recently, the patient had femoral popliteal bypass done yesterday. ALLERGIES: The patient is allergic to CIPROFLOXACIN and NUTS. FAMILY HISTORY: No significant family history of end-stage renal disease requiring hemodialysis but father had peripheral vascular disease, heart disease and diabetes and mother had diabetes as well. SOCIAL HISTORY: The patient denies any alcohol abuse, drug abuse or smoking. REVIEW OF SYSTEMS: CONSTITUTIONAL: The patient denies any fever, chills, or rigors. EYES: She denies any blurred vision, double vision. ENT: She denies any dysphagia, odynophagia or ear discharge. CARDIOVASCULAR: She denies any chest pain, palpitations. RESPIRATORY: She denies any shortness of breath, cough or wheezing. GASTROINTESTINAL: She denies any pain in abdomen, constipation or diarrhea. GENITOURINARY: She denies any dysuria or hematuria. MUSCULOSKELETAL: The patient reports left leg pain when she recently had surgery on the left foot and she is tender at the surgical site. CENTRAL NERVOUS SYSTEM: She denies any weakness or numbness. PSYCHIATRIC: Patient reports a history of depression and anxiety. ENDOCRINE: The patient is a known diabetic, and she has a history of hypothyroidism in the past as well. All other review of systems is negative. PHYSICAL EXAMINATION: GENERAL: The patient is awake, alert, oriented times three, laying in bed, in no apparent distress. VITAL SIGNS: Temperature is 97.1 degrees Fahrenheit. Blood pressure is 122/57, pulse is 74, respiratory rate of 18, saturating 95% on room air. INTAKE AND OUTPUT: Urine output recorded yesterday is 900 mL and urine output recorded so far today since overnight is 1120 mL. Estimated blood loss yesterday with surgery was 450 mL. Weight on the bed scale is not available. HEAD AND NECK EXAM: Extraocular muscles intact. Pupils equally round and reactive to light. Mucous membranes are moist. Neck is supple. There is no jugular venous distention (JVD). CARDIOVASCULAR: S1, S2. Regular rate. No murmur, rub or gallop. RESPIRATORY: Chest is clear to auscultation bilaterally. Bilateral equal air entry. No rales or rhonchi. ABDOMEN: Soft, obese. Positive bowel sounds. Mild tenderness to deep palpation in the left lower quadrant. GENITOURINARY: The patient does not have a Martin catheter at this time. Nol hernia noted. MUSCULOSKELETAL: The patient has a dressing in the left groin and the left foot from recent surgery and debridement of the left foot wound. There is no significant edema in the extremities. CENTRAL NERVOUS SYSTEM: No focal neurological deficit. Power is 5/5 in bilateral upper extremities. PSYCHIATRIC: Normal mood and affect. LYMPH NODES: No significant cervical, axillary or inguinal lymphadenopathy. SKIN: No rashes or ulcers apart from left foot ulcer and left leg erythema from the recent cellulitis. LAB REVIEW: CBC showed a WBC of 11.6, hemoglobin 7.6, platelets of 351. Urinalysis done today showed 1+ glucose, negative nitrite, negative leukocyte esterase. Random creatinine was 61, random sodium was 36, random chloride was 68. BMP done today, morning, showed sodium 138, potassium 6.6, chloride 103, bicarbonate 25, BUN 54, creatinine is 2.1, calcium 7.7, phosphorus 4.3, magnesium 2.3. Microbiology: Wound culture is growing Morganella morganii, Enterococcus faecalis and Enterococcus raffinosus. CURRENT INPATIENT MEDICATIONS: The patient's medications were all reviewed by me. She was given calcium gluconate 1 gram IV times two doses. I have started the patient on normal saline at 100 mL an hour. She is also on insulin protocol. She was on Zosyn. I have changed the Zosyn dose to 2.25 grams IV every 6 hours according to renal function. Tylenol as needed. Aspirin 325 mg by mouth daily. Senokot one tablet daily. The patient was on Lasix; I have stopped the Lasix dose at this time. Gabapentin 200 mg by mouth nightly. Insulin sliding scale. Levothyroxine 75 mcg daily. The patient was on lisinopril 5 mg by mouth daily, which was stopped. Metoprolol 25 mg by mouth twice a day. Morphine 2 mg every 30 minutes as needed. Zofran as needed. Zocor 40 mg nightly. Kayexalate 30 grams by mouth times one dose was given today. Spironolactone 25 mg by mouth daily, which was stopped by me today, morning. ASSESSMENT: An 81-year-old female with a past medical history of diabetes mellitus type 2, peripheral vascular disease, chronic kidney disease stage III, coronary artery disease, history of congestive heart failure in the past, admitted at this time because of ischemia and gangrene of the left foot. The patient is status post femoral popliteal bypass and debridement of the left foot ulcer. Now, she has developed acute kidney injury and hyperkalemia. PLAN: 1. Acute kidney injury superimposed on chronic kidney disease. It is multifactorial at this time. Recent use of intravenous contrast about 4 days ago. The patient recently had major vascular surgery yesterday. She was also on angiotensin-converting enzyme (SHARIFA) inhibitors, diuretics and spironolactone. I have placed a Martin catheter to monitor the urine intake and output. The patient is not oliguric at this time. Her urine output is acceptable. I have stopped the diuretic, including Lasix and spironolactone. I am holding the SHARIFA inhibitor as well. I am starting with gentle IV hydration with 100 mL an hour for the next 24 hours. The patient is also going to get packed red blood cells transfusion, which will help with the volume as well. No urgent need of hemodialysis at this time. 2. Hyperkalemia. It is secondary to a combination of acute renal failure, use of spironolactone, SHARIFA inhibitor and Ringer's lactate postoperative. Ringer's lactate contains potassium. Fluid was already stopped by the primary team. The patient was already given a dose of Kayexalate. Repeat BMP showed a potassium of 5.9, which is acceptable. I have also started the IV normal saline. Further diuresis and holding the SHARIFA and potassium-sparing diuretic will help bring the potassium down. No urgent need of hemodialysis at this time for management of hyperkalemia. 3. Hypertension. Blood pressure is acceptable at this time. I am holding the lisinopril 5 mg daily. If needed, the patient can be started on calcium channel alex, which will help with the peripheral vascular disease as well. 4. Diabetes mellitus, type 2. The patient has been started on insulin drip because of uncontrolled hyperglycemia. Once the insulin drip is stopped, the patient can be started on long-acting insulin, Levemir or Lantus along with insulin sliding scale coverage. 5. Hypothyroidism. Continue home dose of levothyroxine 75 mcg by mouth daily. 6. Gangrene and cellulitis in the left foot. The patient is currently on IV Zosyn. Cultures are growing multiple bacteria. I have decreased the Zosyn dose to 2.25 grams IV every 6 hours according to patient's renal function. 7. Acute blood loss anemia. The patient's hemoglobin this morning is 7.6. She lost around 450 mL of blood during surgery as well. Two units of packed red blood cell transfusion has already been ordered by the surgical service. Hemoglobin is expected to improve after the transfusion. There is no active bleeding at this time. 8. History of ischemic cardiomyopathy. Continue current dose of aspirin. The patient was on diuretics, which have been held because of acute renal failure. The patient will only get IV fluids for 24 hours, then she will be reevaluated for any need to continue the IV fluid hydration. Thank you for involving us in the care of this patient. We shall be happy to follow the patient along with you tomorrow morning. KIM
--- NOTE | 2017-01-01 23:38 | ECHO ---
DATE OF PROCEDURE: 01/01/2017 REFERRING PHYSICIAN: Dr. Dallas Shi INDICATION: Heart failure, unspecified. HEIGHT: 165 cm WEIGHT: 106 kg 2D MEASUREMENTS: Aortic root: 3.2 cm Left atrium: 3.7 cm Left ventricle diastole: 4.0 cm Ventricular septum: 1.24 cm Posterior wall: 1.22 cm LVOT: 2.1 cm DOPPLER MEASUREMENTS: Aortic valve: 163 cm/s LVOT velocity: 81.2 cm/s LVOT VTI: 20.4 cm Mitral E velocity: 72.6 cm/s Mitral A velocity: 125 cm/s Mitral deceleration time: 278 ms Pulmonary artery systolic pressure: 39 mmHg by pulmonary acceleration time method. MITRAL ANNULAR TISSUE DOPPLER: E prime septal: 4.7 cm/s E prime lateral: 9.65 cm/s DESCRIPTION: Rhythm was sinus. This was a moderately technically difficult echocardiogram, which was performed in the supine position. No pericardial effusion. This is a 2D, M-mode, color flower Doppler and pulse wave Doppler examination and included mitral annular tissue Doppler. CONCLUSIONS: 1. Very mild concentric left ventricle hypertrophy. Normal regional left ventricle (LV) wall motion and wall thickening. Normal LV systolic function. Left ventricular ejection fraction (LVEF) 60% by visual estimate. Grade 1 LV diastolic dysfunction (impaired relaxation filling pattern). Normal left atrial size. 2. Moderate aortic valve sclerosis of a 3-cuspid aortic valve. No aortic stenosis or regurgitation. 3. Mild mitral annular calcification. No mitral regurgitation detected. 4. Suggestive of mild elevation of pulmonary artery systolic pressure. 5. Otherwise probably normal echocardiogram Doppler; however, this was a moderately technically difficult echocardiogram.
[2017-01-02] VITALS (13 sets, daily range): BP systolic 105–153; BP diastolic 37–63
[2017-01-02] MEDS: PIPERACILLIN/TAZOBACTAM SOD 2.25 GM in D5W MINI-BAG PLUS 50 ML IV SCH ×5 (00:22→23:48)
[2017-01-02] MEDS: MORPHINE 2 MG/ML 1ML SYRINGE IV PRN ×3 (02:17→14:28)
[2017-01-02] MEDS: INSULIN IV RATE CHANGE DOCUMENTATION ML/HR XX SCH ×3 (04:08→11:12)
[2017-01-02 04:35] LABS: MEAN CORPUSCULAR HEMOGLOBIN 31.7 pg (27.0-33.0); MEAN CORPUSCULAR HGB CONC 34.1 g/dl (32.0-36.5); RED CELL DISTRIBUTION WIDTH 14.7 % (11.5-14.5); WHITE BLOOD COUNT 10.3 K/mm3 (4.0-10.0)
[2017-01-02 04:44] LABS: CALCIUM LEVEL 8.2 MG/DL (8.8-10.2); CREATININE FOR GFR 1.82 MG/DL (0.55-1.02); GLOMERULAR FILTRATION RATE 28.5 (>32); POTASSIUM SERUM 4.9 MEQ/L (3.5-5.1)
[2017-01-02] MEDS: LEVOTHYROXINE 75MCG TABLET (0.075MG) PO SCH (04:57)
[2017-01-02] MEDS: SODIUM CHLORIDE 0.9% INJ 10 ML SYR IV SCH ×2 (05:01→17:23)
[2017-01-02 05:13] LABS: MEAN CORPUSCULAR VOLUME 92.9 fl (80.0-96.0)
[2017-01-02] MEDS: INSULIN HUMAN REGULAR 100 UNITS in NS 99 ML IV SCH (08:00)
[2017-01-02] MEDS: NS 1,000 ML IV SCH (08:00)
[2017-01-02] MEDS: ACETAMINOPHEN 325 MG TAB PO SCH ×2 (09:01→21:46)
[2017-01-02] MEDS: METOPROLOL TART 25 MG TABLET PO SCH ×2 (09:02→21:46)
[2017-01-02] MEDS: SENOKOT S TAB PO SCH (09:02)
[2017-01-02] MEDS: ASPIRIN ENTERIC 325 MG TAB PO SCH (09:02)
[2017-01-02] MEDS: HumaLOG INSULIN (NovoLOG) PER UNIT SC SCH ×3 (12:00→21:47)
[2017-01-02] MEDS: LEVEMIR (INSULIN DETEMIR) 1 UNITS/0.01ML SC SCH (12:09)
[2017-01-02] MEDS: DAKIN'S 0.25% HALF-STRENGTH SOLN 480 ML TOP SCH ×2 (14:30→23:49)
--- NOTE | 2017-01-02 19:35 | IPN ---
DATE: 01/02/2017 SUBJECTIVE: The patient was seen and examined at the bedside today morning in the ICU. Last 24 hour events were noted. The patient continues to be on IV insulin drip this morning because of hyperglycemia. She is otherwise hemodynamically stable. Renal function is improving. Creatinine is down to 1.8 today and her hyperkalemia is also improving now. REVIEW OF SYSTEMS: The patient denies any fever, chills, rigors, headache, nausea, vomiting, chest pain, shortness of breath. She denies any pain in abdomen, but she does report pain in the left groin at the surgical site and she reports pain in the left back. The rest of the review of system is negative. OBJECTIVE: VITAL SIGNS: Temperature is 96.8 degrees Fahrenheit. Blood pressure is 133/40, pulse is 62, respiratory rate of 16. Saturating 100% on nasal cannula at 1 liters. Intake and output: Urine output recorded as 1.2 liters yesterday, 1.4 liters so far today since overnight. Weight on the bed scale is 108.3 kg. PHYSICAL EXAMINATION: GENERAL: The patient is awake, alert and oriented times three. Laying in bed. No apparent distress. HEAD/NECK: Extraocular muscles intact. Pupils equally round and reactive to light. Mucous membranes are moist. Neck is supple. There is no jugular venous distention (JVD). CARDIOVASCULAR: S1, S2, regular rate. No murmur, rub or gallop. RESPIRATORY: Chest is clear to auscultation bilaterally. Bilateral equal air entry. No rales or rhonchi. ABDOMEN: Soft, obese, positive bowel sounds. Mild tenderness to deep palpation in the left lower quadrant, which is close to the surgical site. GENITOURINARY: The patient has a indwelling Martin catheter at this time. MUSCULOSKELETAL: The patient has a dressing in the left groin and she has a dressing on the left foot. The patient has mild tenderness too deep palpation in the right leg as well. She has 1+ edema in the right leg. CENTRAL NERVOUS SYSTEM: No focal neurological deficit. Power is 5/5 in bilateral lower extremities. PSYCHIATRIC: Normal mood and affect. LAB REVIEW: CBC showed a WBC of 10.3, hemoglobin 8.5, platelets are 248. BMP showed sodium 141, potassium 4.9, chloride 105, bicarbonate 29, BUN 48, creatinine is 1.8. Calcium is 8.2. Glucose is 161. CURRENT INPATIENT MEDICATIONS: The patient's medications were all reviewed by me. She continues to be on IV Zosyn. I have started the patient on insulin Levemir, 40 units subcutaneous times one dose today and she has also been started on insulin sliding scale protocol. There is no other change in the medications today as compared with yesterday. ASSESSMENT: 81-year-old female with past medical history of diabetes mellitus, type 2, peripheral vascular disease, chronic kidney disease, stage III, coronary artery disease, history of congestive heart failure in the past admitted this time because of ischemia and gangrene of the left foot, status post fem-pop bypass on the left side and debridement of the left foot ulcer. Nephrology service following the patient for management of acute kidney injury, hyperkalemia and diabetes mellitus type 2. PLAN: 1. Acute kidney injury superimposed on chronic disease, stage III. It is multifactorial. Nephrotoxic medications were held yesterday. The patient was started on gentle IV fluid hydration. Angiotensin-converting enzyme (SHARIFA) inhibitors and diuretics were stopped. I see an improvement with the renal function. Creatinine is down to 1.8 now. Because of history of CHF, I stopped the IV fluids. Continue to encourage oral hydration. Continue to hold diuretics at this time. Continue to monitor intake and output. Continue the Martin right now because of critical care patient monitoring. 2. Hyperkalemia. I see an improvement in the potassium level after stopping spironolactone, SHARIFA inhibitors and starting gentle IV hydration. Potassium is within the acceptable range. Continue low potassium diet at this time. 3. Hypertension. Blood pressure is acceptable at this time. Antihypertensive medications are on hold, except low dose of metoprolol 25 mg by mouth twice a day. Continue the current regimen. No need of escalation of regimen at this time. 4. Hyperglycemia in the setting of insulin dependent diabetes mellitus, type 2. The patient is on insulin drip. I am going to stop the insulin drip. I would give Levemir 40 units subcutaneous one hour before stopping the insulin drip and I am going to start the patient on insulin sliding scale with meals and at bedtime as well. 5. Hypothyroidism. Continue current dose of levothyroxine 75 mcg by mouth daily. 6. Gangrene and cellulitis of the left foot. The patient is currently on IV Zosyn, which is dosed according to the renal function. The patient is status post left fem-pop bypass. Management is as per surgical service. 7. Acute blood loss anemia. The patient got 2 units of packed red blood cells transfusion. Hemoglobin has improved to 8.5. Continue to monitor for now. 8. History of ischemic cardiomyopathy. Continue aspirin. Diuretics are hold because of acute renal failure. Continue metoprolol. The plan of care was discussed with the patient's RN at the bedside today morning in the ICU. Total critical care time spent in the management of this patient in the ICU was 45 minutes.
[2017-01-02] MEDS: SIMVASTATIN 40 MG TAB PO SCH (21:45)
[2017-01-02] MEDS: GABAPENTIN 100 MG CAP PO SCH (21:45)
--- NOTE | 2017-01-02 22:34 | IPNPDOC ---
Date Seen The patient was seen on 01/02/17. Progress Note SUBJECTIVE: Patient is without complaints with no pain in the left lower extremity. Patient was having difficulty with swallowing and a feeling of fullness in her pharynx which is resolving. OBJECTIVE PHYSICAL EXAMINATION: VITAL SIGNS: Please see below. GENERAL: Lying in bed comfortably HEENT: Normal CARDIOVASCULAR: Regular rate and rhythm. RESPIRATORY: Clear to auscultation bilaterally. ABDOMINAL: Soft nontender nondistended EXTREMITIES: Left lower extremity is warm and well perfused with good capillary refill. Incisions are clean dry and intact. NEUROLOGICAL: Awake alert oriented x3 with no focal deficits PSYCHOLOGICAL: Normal LABORATORY DATA: Please see below. MICROBIOLOGY: Please see below. ASSESSMENT AND PLAN: This is a 81-year-old female with gangrene and tissue loss in the left lower extremity underwent a femoral to popliteal artery bypass graft. Patient had acute renal failure postoperatively as well as hyperglycemia and hyperkalemia. PROBLEMS: 1. left lower extremity ischemia: Patient is stable after undergoing a left femoral popliteal artery bypass graft. Patient will continue with wet to dry dressing changes to the left heel.. 2. acute renal failure with hyperglycemia and hyperkalemia: Patient's creatinine is decreasing and her potassium is stable. Patient was placed on an insulin drip and her sugars are normalized and will begin her normal hyperglycemic regimen and will discontinue the insulin drip. DISPOSITION: Patient is improving but continues to require intensive care monitoring.. VS, I&O, 24H, Fishbone Vital Signs/I&O Vital Signs Date Time Temp Pulse Resp B/P (MAP) Pulse Ox O2 Delivery O2 Flow Rate FiO2 01/02/17 21:46 70 135/60 01/02/17 16:00 96.8 16 100 Nasal Cannula 1.0 I&O- Last 24 Hours up to 6 AM 01/02/17 06:00 Intake Total 3948 ml Output Total 1800 ml Balance 2148 ml Laboratory Data 24H LABS Laboratory Tests 2 01/01/17 23:27: Bedside Glucose (Misc Panel) 78L 01/02/17 00:01: Bedside Glucose (Misc Panel) 69L 01/02/17 00:31: Bedside Glucose (Misc Panel) 69L 01/02/17 01:02: Bedside Glucose (Misc Panel) 83 01/02/17 02:04: Bedside Glucose (Misc Panel) 116H 01/02/17 04:02: Bedside Glucose (Misc Panel) 156H 01/02/17 04:18: Anion Gap 7L, Glomerular Filtration Rate 28.5L, Blood Urea Nitrogen 48H, Creatinine 1.82H, Sodium Level 141, Potassium Level 4.9, Chloride Level 105, Carbon Dioxide Level 29, Calcium Level 8.2L 01/02/17 06:13: Bedside Glucose (Misc Panel) 112H 01/02/17 07:58: Bedside Glucose (Misc Panel) 103 01/02/17 09:53: Bedside Glucose (Misc Panel) 88 01/02/17 11:10: Bedside Glucose (Misc Panel) 82L 01/02/17 12:07: Bedside Glucose (Misc Panel) 98 01/02/17 12:55: Bedside Glucose (Misc Panel) 99 01/02/17 16:46: Bedside Glucose (Misc Panel) 182H 01/02/17 21:24: Bedside Glucose (Misc Panel) 326H CBC/BMP Laboratory Tests 01/02/17 04:18 Red Blood Count 2.67 L, Mean Corpuscular Volume 92.9 #, Mean Corpuscular Hemoglobin 31.7, Mean Corpuscular Hemoglobin Concent 34.1, Red Cell Distribution Width 14.7 H, Calcium Level 8.2 L Microbiology Microbiology 12/28/16 Wound Culture - Final, Complete Morganella Morganii Ssp Erasmo Enterococcus Faecalis Enterococcus Raffinosus Dallas Shi MD Jan 02, 2017 22:34
[2017-01-03] VITALS (8 sets, daily range): BP systolic 112–151; BP diastolic 49–67
[2017-01-03] MEDS: MORPHINE 2 MG/ML 1ML SYRINGE IV PRN ×5 (01:08→21:41)
[2017-01-03 04:24] LABS: MEAN CORPUSCULAR HEMOGLOBIN 30.5 pg (27.0-33.0); MEAN CORPUSCULAR HGB CONC 32.5 g/dl (32.0-36.5); MEAN CORPUSCULAR VOLUME 93.8 fl (80.0-96.0); RED CELL DISTRIBUTION WIDTH 14.3 % (11.5-14.5); WHITE BLOOD COUNT 8.9 K/mm3 (4.0-10.0)
[2017-01-03 04:49] LABS: CALCIUM LEVEL 8.1 MG/DL (8.8-10.2); CREATININE FOR GFR 1.5 MG/DL (0.55-1.02); GLOMERULAR FILTRATION RATE 35.6 (>32); POTASSIUM SERUM 4.6 MEQ/L (3.5-5.1)
[2017-01-03] MEDS: SODIUM CHLORIDE 0.9% INJ 10 ML SYR IV SCH ×2 (06:00→18:00)
[2017-01-03] MEDS: PIPERACILLIN/TAZOBACTAM SOD 2.25 GM in D5W MINI-BAG PLUS 50 ML IV SCH ×3 (06:22→18:00)
[2017-01-03] MEDS: LEVOTHYROXINE 75MCG TABLET (0.075MG) PO SCH (06:22)
[2017-01-03] MEDS: DAKIN'S 0.25% HALF-STRENGTH SOLN 480 ML TOP SCH ×3 (06:24→21:43)
[2017-01-03] MEDS: HumaLOG INSULIN (NovoLOG) PER UNIT SC SCH ×4 (07:44→21:42)
[2017-01-03] MEDS: ASPIRIN ENTERIC 325 MG TAB PO SCH (08:30)
[2017-01-03] MEDS: METOPROLOL TART 25 MG TABLET PO SCH ×2 (08:31→21:00)
[2017-01-03] MEDS: SENOKOT S TAB PO SCH (08:31)
[2017-01-03] MEDS: ACETAMINOPHEN 325 MG TAB PO SCH ×2 (08:31→21:42)
[2017-01-03] MEDS: LEVEMIR (INSULIN DETEMIR) 1 UNITS/0.01ML SC SCH (08:32)
[2017-01-03] MEDS: SIMVASTATIN 40 MG TAB PO SCH (21:42)
[2017-01-03] MEDS: GABAPENTIN 100 MG CAP PO SCH (21:43)
--- NOTE | 2017-01-03 23:04 | IPNPDOC ---
Date Seen The patient was seen on 01/03/17. Progress Note SUBJECTIVE: Patient is without complaints. OBJECTIVE PHYSICAL EXAMINATION: VITAL SIGNS: Please see below. GENERAL: Lying in bed comfortably HEENT: R Alexy CARDIOVASCULAR: Regular rate and rhythm. RESPIRATORY: Clear to auscultation bilaterally. ABDOMINAL: Soft nontender nondistended EXTREMITIES: Left lower extremity is well-perfused, incision is healing well. Left heel ulcer stable. NEUROLOGICAL: Awake alert oriented x3 with no focal deficits PSYCHOLOGICAL: Normal LABORATORY DATA: Please see below. MICROBIOLOGY: Please see below. ASSESSMENT AND PLAN: This is a 81-year-old female with gangrene and nonhealing left heel ulcer with SFA occlusive disease. She underwent a left femoral to above-knee popliteal artery bypass graft. Postoperatively the patient had acute on chronic renal failure, hyperglycemia, and hyperkalemia. PROBLEMS: 1. left lower extremity ischemia and gangrene of left heel with ulcer: Left femoral popliteal artery bypass graft completed and the patient has better perfusion of her left lower extremity.. 2. acute on chronic renal failure with hyperkalemia and hyperglycemia: is improving and these are resolving.. DISPOSITION: The patient requires continued ICU care. VS[facility]O Vital Signs Date Time Temp Pulse Resp B/P (MAP) Pulse Ox O2 Delivery O2 Flow Rate FiO2 01/03/17 21:41 67 19 134/64 98 1.0 01/03/17 20:00 Nasal Cannula 01/03/17 20:00 97.1 I&O- Last 24 Hours up to 6 AM 01/03/17 06:00 Intake Total 1351 ml Output Total 1700 ml Balance -349 ml Laboratory Data 24H LABS Laboratory Tests 2 01/03/17 04:13: Anion Gap 7L, Glomerular Filtration Rate 35.6, Blood Urea Nitrogen 36H, Creatinine 1.50H, Sodium Level 142, Potassium Level 4.6, Chloride Level 107, Carbon Dioxide Level 28, Calcium Level 8.1L 01/03/17 12:01: Bedside Glucose (Misc Panel) 252H CBC/BMP Laboratory Tests 01/03/17 04:13 Red Blood Count 2.80 L, Mean Corpuscular Volume 93.8, Mean Corpuscular Hemoglobin 30.5, Mean Corpuscular Hemoglobin Concent 32.5, Red Cell Distribution Width 14.3, Calcium Level 8.1 L Microbiology Microbiology 12/28/16 Wound Culture - Final, Complete Morganella Morganii Ssp Erasmo Enterococcus Faecalis Enterococcus Raffinosus Dallas Shi MD Jan 03, 2017 23:04
[2017-01-04] VITALS: BP 115/56
[2017-01-04] MEDS: PIPERACILLIN/TAZOBACTAM SOD 2.25 GM in D5W MINI-BAG PLUS 50 ML IV SCH ×3 (00:08→12:11)
[2017-01-04] MEDS: NORCO, ANEXSIA 5/325MG TABLET (HYDROcodone/ACETAMINOPHEN) PO PRN ×2 (03:13→18:17)
[2017-01-04 04:00] VITALS: BP 149/62
[2017-01-04] MEDS: MORPHINE 2 MG/ML 1ML SYRINGE IV PRN ×3 (05:14→23:29)
[2017-01-04] MEDS: SODIUM CHLORIDE 0.9% INJ 10 ML SYR IV SCH ×2 (05:14→21:58)
[2017-01-04] MEDS: LEVOTHYROXINE 75MCG TABLET (0.075MG) PO SCH (05:15)
[2017-01-04] MEDS: DAKIN'S 0.25% HALF-STRENGTH SOLN 480 ML TOP SCH ×3 (05:15→21:59)
[2017-01-04 05:53] LABS: MEAN CORPUSCULAR HEMOGLOBIN 31.6 pg (27.0-33.0); MEAN CORPUSCULAR HGB CONC 33.4 g/dl (32.0-36.5); MEAN CORPUSCULAR VOLUME 94.6 fl (80.0-96.0); RED CELL DISTRIBUTION WIDTH 14.1 % (11.5-14.5); WHITE BLOOD COUNT 8.6 K/mm3 (4.0-10.0)
[2017-01-04 06:14] LABS: CALCIUM LEVEL 7.6 MG/DL (8.8-10.2); CREATININE FOR GFR 1.2 MG/DL (0.55-1.02); POTASSIUM SERUM 4.5 MEQ/L (3.5-5.1)
[2017-01-04 08:00] VITALS: BP 151/67
[2017-01-04] MEDS: HumaLOG INSULIN (NovoLOG) PER UNIT SC SCH ×5 (08:29→22:03)
[2017-01-04] MEDS: LEVEMIR (INSULIN DETEMIR) 1 UNITS/0.01ML SC SCH (08:29)
[2017-01-04] MEDS: ACETAMINOPHEN 325 MG TAB PO SCH (08:30)
[2017-01-04] MEDS: SENOKOT S TAB PO SCH (08:30)
[2017-01-04] MEDS: ASPIRIN ENTERIC 325 MG TAB PO SCH (08:31)
[2017-01-04] MEDS: METOPROLOL TART 25 MG TABLET PO SCH ×2 (08:31→21:56)
[2017-01-04] MEDS ORDERED: BISACODYL 10 MG SUPP PR PRN (09:30)
[2017-01-04] MEDS ORDERED: MOM 30ML SUSPENSION UDC PO PRN ×2 (09:30→09:45)
[2017-01-04 12:00] VITALS: BP 134/67
[2017-01-04 16:05] VITALS: BP 140/65
[2017-01-04] MEDS: PIPERACILLIN/TAZOBACTAM SOD 3.375 GM in D5W MINI-BAG PLUS 50 ML IV SCH ×2 (18:16→23:29)
--- NOTE | 2017-01-04 18:31 | IPN ---
DATE: 01/04/2017 SUBJECTIVE: The patient was seen and examined at the bedside today morning in the intensive care unit (ICU). The patient reports that she is feeling much better. She is tolerating her diet. Renal function is improving. She is hemodynamically stable. Glucose is also better controlled today. The patient is complaining of constipation. REVIEW OF SYSTEMS: The patient denies any fevers, chills, rigors, headaches, nausea, vomiting, chest pain, shortness of breath. She does report constipation. She has not moved her bowels for the last 3-4 days, and she also reports mild left leg pain. Otherwise, she feels significantly better. Rest of review of systems is negative. OBJECTIVE: VITAL SIGNS: Temperature is 98.5 degrees Fahrenheit, blood pressure is 140/65, pulse 60, respiratory rate of 16, saturating 95% on room air. INTAKE AND OUTPUT: Urine output recorded as 1130 mL yesterday, 780 mL so far today since overnight. Weight in the bed scale is 106.4 kg. PHYSICAL EXAMINATION: GENERAL: The patient is awake, alert, and oriented times three, lying in bed, no apparent distress. HEAD/NECK: Extraocular muscles intact. Pupils equal, round, and reactive to light, mucous membranes moist. Neck is supple. There is no jugular venous distention (JVD). CARDIOVASCULAR: S1, S2. Regular rate. No murmur, rub, or gallop. RESPIRATORY: Clear to auscultation bilaterally. Bilateral equal air entry. No rales or rhonchi. ABDOMEN: Soft, obese. Positive bowel sounds. Nontender. No organomegaly. GENITOURINARY: The patient has an indwelling Martin catheter at this time. MUSCULOSKELETAL: The patient has a dressing on the left foot, and a gangrenous area on the big toe, and she has a dressing in the left groin area from a recent femoral-popliteal (FEM-POP) bypass. 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 Power is 5/5 in bilateral upper extremities. PSYCHIATRIC: Normal mood and affect. LABORATORY DATA: CBC showed WBC 8.6, hemoglobin 8.4, platelets 276. BMP showed sodium 142, potassium 4.5, chloride 107, bicarbonate 28, BUN 26, creatinine 1.2, calcium 7.6. Glucose 155. CURRENT INPATIENT MEDICATIONS: The patient's medications are all reviewed by me. She continues to be on intravenous (IV) Zosyn at this time. There is no other change in the medications today as compared with yesterday. ASSESSMENT: An 81-year-old female with past medical history of diabetes mellitus type 2, peripheral vascular disease, chronic kidney disease stage III, coronary artery disease, history of congestive heart failure in the past, admitted this time because of ischemia and gangrene of the left foot, status post left femoral-popliteal bypass. Nephrology service following the patient for management of acute kidney injury, hyperkalemia, and diabetes mellitus type 2. PLAN: 1. Acute kidney injury superimposed on chronic kidney disease stage III: The patient's renal function continues to improve. Her urine output is improving. Angiotension-converting enzyme (SHARIFA) inhibitors and diuretics are on hold. Creatinine is down to 1.2 now. Martin catheter will be removed today. 2. Hypertension: Blood pressure is acceptable at this time. Continue current dose of metoprolol. If blood pressure goes above 150, then calcium channel blockers will be started. 3. Diabetes mellitus type 2. Glucose levels are better controlled now. Continue current dose of Levemir 40 units subcutaneous daily, and insulin sliding scale. 4. History of ischemic cardiomyopathy. Continue aspirin. Continue metoprolol. Diuretics are on hold. Volume status is optimized at this time. 5. Constipation. The patient will be given milk of magnesia orally as needed and she will also be given a dose of Dulcolax suppository today. 6. Gangrene of the left foot, along with cellulitis, status post left femoral popliteal bypass. Management of the surgical site is up to vascular surgery. She continues to be on IV Zosyn for left leg cellulitis. Zosyn dose will be adjusted to patient's glomerular filtration rate (GFR).
[2017-01-04] MEDS: ACETAMINOPHEN TAB 650MG DOSE (2X325MG) PO SCH (21:55)
[2017-01-04] MEDS: GABAPENTIN 100 MG CAP PO SCH (21:55)
[2017-01-04] MEDS: SIMVASTATIN 40 MG TAB PO SCH (21:56)
[2017-01-04 22:00] VITALS: BP 132/61
--- NOTE | 2017-01-04 23:26 | IPNPDOC ---
Date Seen The patient was seen on 01/04/17. Progress Note SUBJECTIVE: Patient is without complaints. He doesn't note some constipation. OBJECTIVE PHYSICAL EXAMINATION: VITAL SIGNS: Please see below. GENERAL: Lying in bed comfortably HEENT: Normal CARDIOVASCULAR: Regular rate and rhythm. RESPIRATORY: Clear to auscultation bilaterally. ABDOMINAL: Soft nontender nondistended EXTREMITIES: Lower extremities well perfused. Incisions are clean. NEUROLOGICAL: Awake alert oriented x3 with no focal deficits PSYCHOLOGICAL: Normal LABORATORY DATA: Please see below. MICROBIOLOGY: Please see below. ASSESSMENT AND PLAN: This is a 81-year-old female with gangrene and nonhealing left heel ulcer who is status post left femoral to above-knee popliteal artery bypass graft PROBLEMS: 1. left lower extremity ischemia: Patient's left lower extremity is well- perfused. Left heel ulcer stable. DISPOSITION: Patient improving and stable and able to be transferred to the floor. VS, I&O, 24H, Fishbone Vital Signs/I&O Vital Signs Date Time Temp Pulse Resp B/P (MAP) Pulse Ox O2 Delivery O2 Flow Rate FiO2 01/04/17 22:00 97.1 60 17 132/61 (84) 94 Room Air 01/04/17 16:12 2.0 I&O- Last 24 Hours up to 6 AM 01/04/17 06:00 Intake Total 860 ml Output Total 985 ml Balance -125 ml Laboratory Data 24H LABS Laboratory Tests 2 01/04/17 05:12: Anion Gap 7L, Glomerular Filtration Rate 46.0, Blood Urea Nitrogen 26H, Creatinine 1.20H, Sodium Level 142, Potassium Level 4.5, Chloride Level 107, Carbon Dioxide Level 28, Calcium Level 7.6L CBC/BMP Laboratory Tests 01/04/17 05:12 Red Blood Count 2.66 L, Mean Corpuscular Volume 94.6, Mean Corpuscular Hemoglobin 31.6, Mean Corpuscular Hemoglobin Concent 33.4, Red Cell Distribution Width 14.1, Calcium Level 7.6 L Microbiology Microbiology 12/28/16 Wound Culture - Final, Complete Morganella Morganii Ssp Erasmo Enterococcus Faecalis Enterococcus Raffinosus Dallas Shi MD Jan 04, 2017 23:26
[2017-01-05] MEDS: SODIUM CHLORIDE 0.9% INJ 10 ML SYR IV PRN (04:34)
[2017-01-05] MEDS: MORPHINE 2 MG/ML 1ML SYRINGE IV PRN ×2 (04:34→06:06)
[2017-01-05] MEDS: LEVOTHYROXINE 75MCG TABLET (0.075MG) PO SCH (05:37)
[2017-01-05] MEDS: SODIUM CHLORIDE 0.9% INJ 10 ML SYR IV SCH ×2 (05:37→17:12)
[2017-01-05] MEDS: PIPERACILLIN/TAZOBACTAM SOD 3.375 GM in D5W MINI-BAG PLUS 50 ML IV SCH ×4 (05:37→23:59)
[2017-01-05] MEDS: NORCO, ANEXSIA 5/325MG TABLET (HYDROcodone/ACETAMINOPHEN) PO PRN (05:37)
[2017-01-05] MEDS: DAKIN'S 0.25% HALF-STRENGTH SOLN 480 ML TOP SCH ×3 (05:38→21:57)
[2017-01-05 06:00] VITALS: BP 139/60
[2017-01-05 06:04] LABS: MEAN CORPUSCULAR HEMOGLOBIN 30.8 pg (27.0-33.0); MEAN CORPUSCULAR HGB CONC 32.8 g/dl (32.0-36.5); MEAN CORPUSCULAR VOLUME 93.7 fl (80.0-96.0); RED CELL DISTRIBUTION WIDTH 13.9 % (11.5-14.5); WHITE BLOOD COUNT 9.9 K/mm3 (4.0-10.0)
[2017-01-05 06:52] LABS: CALCIUM LEVEL 7.4 MG/DL (8.8-10.2); CREATININE FOR GFR 1.23 MG/DL (0.55-1.02); GLOMERULAR FILTRATION RATE 44.7 (>32); POTASSIUM SERUM 4.9 MEQ/L (3.5-5.1)
[2017-01-05] MEDS: LEVEMIR (INSULIN DETEMIR) 1 UNITS/0.01ML SC SCH (08:16)
[2017-01-05] MEDS: ACETAMINOPHEN TAB 650MG DOSE (2X325MG) PO SCH ×2 (08:17→21:56)
[2017-01-05] MEDS: HumaLOG INSULIN (NovoLOG) PER UNIT SC SCH ×4 (08:17→21:00)
[2017-01-05] MEDS: ASPIRIN ENTERIC 325 MG TAB PO SCH (08:17)
[2017-01-05] MEDS: SENOKOT S TAB PO SCH (08:18)
[2017-01-05] MEDS: METOPROLOL TART 25 MG TABLET PO SCH ×2 (08:18→21:56)
[2017-01-05 14:00] VITALS: BP 132/61
--- NOTE | 2017-01-05 14:25 | IPN ---
DATE: 01/05/2017 SUBJECTIVE: The patient was seen and examined at the bedside today morning. She was laying in the bed comfortably. She does not have any active complaints. Renal function is stable with a creatinine of 1.2 at this time. REVIEW OF SYSTEMS: The patient denies any fevers, chills, rigors, headaches, nausea, vomiting, chest pain, shortness of breath, pain in abdomen, constipation or diarrhea. The rest of the review of systems is negative. OBJECTIVE: VITAL SIGNS: Temperature is 97.5 degrees Fahrenheit, blood pressure is 139/60, pulse 66, respiratory rate of 20, saturating 97% on room air. INTAKE AND OUTPUT: Urine output recorded as 780 mL yesterday, no urine output recorded today. Weight in the bed scale is not available. PHYSICAL EXAMINATION: GENERAL: The patient is awake, alert, and oriented times three, lying in bed, no apparent distress. HEAD/NECK EXAM: The patient is legally blind. Mucous membranes moist. Neck is supple. There is no jugular venous distention (JVD). CARDIOVASCULAR: S1, S2. Regular rate. No murmur, rub, or gallop. RESPIRATORY: Chest is clear to auscultation bilaterally. Bilateral equal air entry. No rales or rhonchi. ABDOMEN: Soft, obese. Positive bowel sounds. Nontender. No organomegaly. GENITOURINARY: Martin catheter has been removed now. MUSCULOSKELETAL: The patient has a dressing on the left foot and dressing on the left groin area from a recent femoral-popliteal (FEM-POP) bypass. 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 PSYCHIATRIC: Normal mood and affect. LABORATORY REVIEW: CBC showed WBC 9.9, hemoglobin 8.8, platelets 329. BMP showed sodium 143, potassium 4.9, chloride 108, bicarbonate 27, BUN 25, creatinine 1.2, GFR 44, calcium 7.4. CURRENT INPATIENT MEDICATIONS: The patient's medications were all reviewed by me. Her Zosyn dose was increased to 3.375 grams IV every 6 hours because of improving renal function. There is no other change in the medications today as compared with yesterday. ASSESSMENT: 81-year-old female with past medical history of diabetes mellitus type 2, peripheral vascular disease, chronic kidney disease stage III, coronary artery disease, history of congestive heart failure in the past, admitted at this time because of ischemia and gangrene of the left foot, status post left femoral-popliteal bypass. Nephrology service following the patient for management of acute kidney injury, hyperkalemia, and diabetes mellitus type 2. PLAN: 1. Acute kidney injury superimposed on chronic kidney disease. The patient's renal function is back to her baseline. SHARIFA inhibitors are on hold. Creatinine is fluctuating around 1.2. 2. Hypertension. Blood pressure is acceptable at this time. No need of escalation of antihypertensive regimen at this time. Continue current dose of metoprolol 25 mg by mouth twice a day. 3. Diabetes mellitus type 2. Currently being well controlled with Levemir 40 units subcutaneous daily and insulin sliding scale with meals. 4. History of ischemic cardiomyopathy. Continue aspirin and metoprolol. Diuretics are on hold. Volume status is optimized. 5. Gangrene of the left foot, along with cellulitis. She is status post left femoral popliteal bypass. Zosyn dose was increased yesterday because of improvement in renal function. The patient's renal function has improved back to her baseline. Nephrology service will sign off at this moment. Please call nephrology service as needed for any help with the management of this patient.
--- NOTE | 2017-01-05 21:26 | IPNPDOC ---
Date Seen The patient was seen on 01/05/17. Progress Note SUBJECTIVE: Patient is without complaints. OBJECTIVE PHYSICAL EXAMINATION: VITAL SIGNS: Please see below. GENERAL: Lying in bed comfortably with no apparent distress. HEENT: Normal CARDIOVASCULAR: Regular rate and rhythm. RESPIRATORY: Clear to auscultation bilaterally. ABDOMINAL: Soft nontender nondistended EXTREMITIES: Left lower extremities well perfused and warm. Left heel ulcer with some granulation tissue. NEUROLOGICAL: Awake alert oriented x3 PSYCHOLOGICAL: Normal LABORATORY DATA: Please see below. MICROBIOLOGY: Please see below. ASSESSMENT AND PLAN: This is a 81-year-old female with gangrene of the left heel and superficial femoral arterial occlusive disease. Patient underwent a left femoral to above-knee popliteal artery bypass graft for reperfusion of the left lower extremity in an attempt to heal the left foot ulcers. Postoperatively the patient had acute renal failure with a history of chronic renal insufficiency, hyperkalemia and hyperglycemia. PROBLEMS: 1. left lower extremity ischemia: Patient underwent a femoral to above-knee popliteal artery bypass graft which is functioning well and the patient has good perfusion of the left lower extremity. 2. acute renal failure, hyperkalemia and hyperglycemia: These are being monitored and treated by Dr. IRVING whose assistance is much appreciated. DISPOSITION: Patient is stable and improving daily and will be possibly discharged back to her facility on Saturday or Saturday. VS, I&O, [facility] Vital Signs/I&O Vital Signs Date Time Temp Pulse Resp B/P (MAP) Pulse Ox O2 Delivery O2 Flow Rate FiO2 01/05/17 14:00 97.4 66 19 132/61 (84) 91 Room Air 01/04/17 16:12 2.0 I&O- Last 24 Hours up to 6 AM 01/05/17 06:00 Intake Total 650 ml Output Total 475 ml Balance 175 ml Laboratory Data 24H LABS Laboratory Tests 2 01/05/17 05:44: Anion Gap 8, Glomerular Filtration Rate 44.7, Blood Urea Nitrogen 25H, Creatinine 1.23H, Sodium Level 143, Potassium Level 4.9, Chloride Level 108H, Carbon Dioxide Level 27, Calcium Level 7.4L CBC/BMP Laboratory Tests 01/05/17 05:44 Red Blood Count 2.85 L, Mean Corpuscular Volume 93.7, Mean Corpuscular Hemoglobin 30.8, Mean Corpuscular Hemoglobin Concent 32.8, Red Cell Distribution Width 13.9, Calcium Level 7.4 L Microbiology Microbiology 12/28/16 Wound Culture - Final, Complete Morganella Morganii Ssp Erasmo Enterococcus Faecalis Enterococcus Raffinosus Dallas Shi MD Jan 05, 2017 21:24
[2017-01-05] MEDS: GABAPENTIN 100 MG CAP PO SCH (21:55)
[2017-01-05] MEDS: SIMVASTATIN 40 MG TAB PO SCH (21:56)
[2017-01-05 22:00] VITALS: BP 132/58
[2017-01-06] MEDS: NORCO, ANEXSIA 5/325MG TABLET (HYDROcodone/ACETAMINOPHEN) PO PRN ×2 (00:04→17:47)
[2017-01-06 06:00] VITALS: BP 141/80
[2017-01-06] MEDS: LEVOTHYROXINE 75MCG TABLET (0.075MG) PO SCH (06:13)
[2017-01-06] MEDS: PIPERACILLIN/TAZOBACTAM SOD 3.375 GM in D5W MINI-BAG PLUS 50 ML IV SCH ×4 (06:13→23:54)
[2017-01-06] MEDS: DAKIN'S 0.25% HALF-STRENGTH SOLN 480 ML TOP SCH ×3 (06:14→22:16)
[2017-01-06] MEDS: SODIUM CHLORIDE 0.9% INJ 10 ML SYR IV SCH ×2 (06:14→17:39)
[2017-01-06 06:35] LABS: MEAN CORPUSCULAR HEMOGLOBIN 31.6 pg (27.0-33.0); MEAN CORPUSCULAR HGB CONC 33.2 g/dl (32.0-36.5); MEAN CORPUSCULAR VOLUME 95.2 fl (80.0-96.0); RED CELL DISTRIBUTION WIDTH 13.7 % (11.5-14.5)
[2017-01-06 06:53] LABS: CALCIUM LEVEL 7.5 MG/DL (8.8-10.2); CREATININE FOR GFR 1.37 MG/DL (0.55-1.02); GLOMERULAR FILTRATION RATE 39.5 (>32); POTASSIUM SERUM 4.9 MEQ/L (3.5-5.1)
[2017-01-06] MEDS: HumaLOG INSULIN (NovoLOG) PER UNIT SC SCH ×4 (08:16→21:41)
[2017-01-06] MEDS: LEVEMIR (INSULIN DETEMIR) 1 UNITS/0.01ML SC SCH (08:16)
[2017-01-06] MEDS: SENOKOT S TAB PO SCH (08:17)
[2017-01-06] MEDS: ACETAMINOPHEN TAB 650MG DOSE (2X325MG) PO SCH ×2 (08:17→21:40)
[2017-01-06] MEDS: METOPROLOL TART 25 MG TABLET PO SCH ×2 (08:17→21:41)
[2017-01-06] MEDS: ASPIRIN ENTERIC 325 MG TAB PO SCH (08:17)
--- NOTE | 2017-01-06 10:45 | IPNPDOC ---
Date Seen The patient was seen on 01/06/17. Progress Note SUBJECTIVE: Patient is without complaints and resting comfortably. OBJECTIVE PHYSICAL EXAMINATION: VITAL SIGNS: Please see below. GENERAL: Lying in bed asleep and comfortable HEENT: Normal CARDIOVASCULAR: Regular rate and rhythm. RESPIRATORY: Clear to auscultation bilaterally. ABDOMINAL: Soft nontender nondistended EXTREMITIES: Left lower extremity is warm and well perfused with good capillary refill. Left heel ulcer shows signs of healing with some granulation tissue present. NEUROLOGICAL: Awake alert oriented x3 with no focal deficits PSYCHOLOGICAL: Normal LABORATORY DATA: Please see below. MICROBIOLOGY: Please see below. ASSESSMENT AND PLAN: This is an 81-year-old female who presented with gangrene of the left heel and tip of the left first toe with exposed calcaneous bone. Patient underwent angiography showing complete occlusion of her superficial femoral artery with reconstitution of the above-knee popliteal artery via collaterals. Patient underwent a left femoral to above-knee popliteal artery bypass graft with improve perfusion to her left lower extremity. Postoperatively the patient developed acute renal fire with a history of chronic renal insufficiency with hyperkalemia and hyperglycemia. PROBLEMS: 1. left lower extremity arterial atherosclerotic occlusive disease with left heel ulcer and left first toe ulcer: Patient underwent a left femoral to popliteal artery bypass graft as well as debridement of her left heel wound. Patient has good perfusion of the left foot and some improved healing of the left heel wound. Patient has extensive tissue loss in the left heel and will require extensive wound care and understands that the wound may not heal even despite having bypass graft surgery to restore adequate blood flow to the left foot. 2. renal failure, hyperkalemia and hyperglycemia: Patient's renal failure is resolving and her blood sugar and potassium level have been stable. DISPOSITION: Patient is improving daily and progressing towards discharge in the next 48-72 hours back to her nursing facility. VS, I&O, 24H, Fishbone Vital Signs/I&O Vital Signs Date Time Temp Pulse Resp B/P (MAP) Pulse Ox O2 Delivery O2 Flow Rate FiO2 01/06/17 10:06 Room Air 01/06/17 08:17 59 136/65 01/06/17 06:00 98.7 18 97 1.0 I&O- Last 24 Hours up to 6 AM 01/06/17 06:00 Intake Total 1560 ml Balance 1560 ml Laboratory Data 24H LABS Laboratory Tests 2 01/06/17 06:20: Anion Gap 7L, Glomerular Filtration Rate 39.5, Blood Urea Nitrogen 29H, Creatinine 1.37H, Sodium Level 142, Potassium Level 4.9, Chloride Level 107, Carbon Dioxide Level 28, Calcium Level 7.5L CBC/BMP Laboratory Tests 01/06/17 06:20 Red Blood Count 2.69 L, Mean Corpuscular Volume 95.2, Mean Corpuscular Hemoglobin 31.6, Mean Corpuscular Hemoglobin Concent 33.2, Red Cell Distribution Width 13.7, Calcium Level 7.5 L Microbiology Microbiology 12/28/16 Wound Culture - Final, Complete Morganella Morganii Ssp Erasmo Enterococcus Faecalis Enterococcus Raffinosus Dallas Shi MD Jan 06, 2017 10:45
[2017-01-06 14:00] VITALS: BP 172/74
[2017-01-06] MEDS: glipiZIDE XL 5 MG TABCR PO SCH (17:40)
--- NOTE | 2017-01-06 19:39 | IPN ---
DATE: 01/06/2017 SUBJECTIVE: The patient was seen and examined at the bedside today morning. She denies any active complaint. The patient was sleepy this morning when I saw her. She is otherwise afebrile and hemodynamically stable. REVIEW OF SYSTEMS: The patient denies any fevers, chills, rigors, headaches, nausea, vomiting, chest pain, shortness of breath, pain abdomen, constipation, or diarrhea. She reports a mild amount of pain in the leg surgical site. Rest of review of systems is negative. OBJECTIVE: VITAL SIGNS: Temperature is 98.7 degrees Fahrenheit, blood pressure is 141/80, pulse 54, respiratory rate of 18, saturating 97% on nasal cannula. INTAKE AND OUTPUT: Urine output is not recorded. The patient is incontinent now. Weight in the bed scale is 109.3 kg. PHYSICAL EXAMINATION: GENERAL: The patient is awake, alert, oriented times three, lying in bed in no apparent distress. HEAD/NECK: The patient is legally blind. Mucous membranes are moist. Neck is supple. There in no jugular venous distention (JVD). CARDIOVASCULAR: S1, S2. Regular rate. No murmur, rub, or gallop. RESPIRATORY: Chest is clear to auscultation bilaterally. Bilateral equal air entry. No rales or rhonchi. ABDOMEN: Soft, obese. Positive bowel sounds. Nontender. No organomegaly. GENITOURINARY: No hernia. No Martin catheter at this time. MUSCULOSKELETAL: The patient has a dressing on the left foot, and left big toe has an ulcer, and she has dressing in the left groin area from recent femoral popliteal bypass. 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 PSYCHIATRIC: Normal mood and affect. LABORATORY DATA: CBC showed WBC of eight, hemoglobin 8.5, platelets 351. BMP showed sodium 142, potassium 4.9, chloride 107, bicarbonate 28, BUN 29, creatinine 1.3. Glucose 143 , calcium 7.5. CURRENT INPATIENT MEDICATIONS: The patient's medications are all reviewed by me. The patient has been started on glipizide 5 mg by mouth daily in the evening. There is no other change in the medications today. ASSESSMENT: An 81-year-old female with past medical history of diabetes mellitus type 2, peripheral vascular disease, chronic kidney disease stage III, coronary artery disease, history of congestive heart failure in the past, admitted this time because of ischemia and gangrene of the left foot, status post left femoral popliteal bypass. Nephrology service following the patient for management of acute kidney injury, electrolyte abnormalities and diabetes mellitus type 2. PLAN: 1. Acute kidney injury superimposed on chronic kidney disease: The patient's creatinine has improved close to her baseline. It is fluctuating around 1.2 to 1.3 now. Angiotension-converting enzyme (SHARIFA) inhibitors are still on hold. 2. Hypertension. Blood pressure is acceptable at this time. Continue current dose of metoprolol 25 mg by mouth twice a day. No need of escalation of antihypertensive regimen at this time. Systolic blood pressure around 150 would be acceptable for her age and comorbidity. 3. Diabetes mellitus type 2. Continue Levemir 40 units subcutaneous daily. Continue insulin sliding scale. The patient's home dose of glipizide 5 mg by mouth daily was started today. 4. History of ischemic cardiomyopathy. Continue current dose of aspirin and metoprolol. Diuretics are on hold. Volume status is optimized. There is no shortness of breath at this time. 5. Left leg ischemia, status post left femoral-popliteal bypass. The patient is on IV Zosyn for cellulitis of the left leg. Rest of the management is as per surgical service. 6. Disposition: The patient is okay to be discharged from nephrology standpoint. She needs to followup in nephrology service as outpatient about two weeks after discharge from the hospital. Plan of care was discussed with the surgical team, Dr. Yury Shi. KIM
[2017-01-06] MEDS: SIMVASTATIN 40 MG TAB PO SCH (21:39)
[2017-01-06] MEDS: GABAPENTIN 100 MG CAP PO SCH (21:39)
[2017-01-06 22:00] VITALS: BP 137/63
[2017-01-07] MEDS: NORCO, ANEXSIA 5/325MG TABLET (HYDROcodone/ACETAMINOPHEN) PO PRN (00:48)
[2017-01-07] MEDS: SODIUM CHLORIDE 0.9% INJ 10 ML SYR IV PRN (00:48)
[2017-01-07] MEDS: SODIUM CHLORIDE 0.9% INJ 10 ML SYR IV SCH ×2 (05:00→17:49)
[2017-01-07 05:31] LABS: MEAN CORPUSCULAR HEMOGLOBIN 31.9 pg (27.0-33.0); MEAN CORPUSCULAR HGB CONC 33.9 g/dl (32.0-36.5); RED CELL DISTRIBUTION WIDTH 13.6 % (11.5-14.5); WHITE BLOOD COUNT 7.5 K/mm3 (4.0-10.0)
[2017-01-07] MEDS: LEVOTHYROXINE 75MCG TABLET (0.075MG) PO SCH (05:40)
[2017-01-07] MEDS: DAKIN'S 0.25% HALF-STRENGTH SOLN 480 ML TOP SCH ×3 (05:40→21:13)
[2017-01-07] MEDS: PIPERACILLIN/TAZOBACTAM SOD 3.375 GM in D5W MINI-BAG PLUS 50 ML IV SCH ×3 (05:41→17:47)
[2017-01-07 05:53] LABS: CALCIUM LEVEL 7.8 MG/DL (8.8-10.2); CREATININE FOR GFR 1.22 MG/DL (0.55-1.02); GLOMERULAR FILTRATION RATE 45.1 (>32); POTASSIUM SERUM 4.6 MEQ/L (3.5-5.1)
[2017-01-07 06:00] VITALS: BP 145/63
[2017-01-07] MEDS: HumaLOG INSULIN (NovoLOG) PER UNIT SC SCH ×4 (07:30→21:00)
[2017-01-07] MEDS: LEVEMIR (INSULIN DETEMIR) 1 UNITS/0.01ML SC SCH (09:40)
[2017-01-07] MEDS: ACETAMINOPHEN TAB 650MG DOSE (2X325MG) PO SCH ×2 (09:40→21:12)
[2017-01-07] MEDS: METOPROLOL TART 25 MG TABLET PO SCH ×2 (09:41→21:11)
[2017-01-07] MEDS: ASPIRIN ENTERIC 325 MG TAB PO SCH (09:41)
[2017-01-07] MEDS: SENOKOT S TAB PO SCH (09:41)
[2017-01-07 14:00] VITALS: BP 156/70
[2017-01-07] MEDS: glipiZIDE XL 5 MG TABCR PO SCH (17:47)
--- NOTE | 2017-01-07 18:31 | IPNPDOC ---
Date Seen The patient was seen on 01/07/17. Progress Note SUBJECTIVE: Patient is without complaints with no pain in the left lower extremity. OBJECTIVE PHYSICAL EXAMINATION: VITAL SIGNS: Please see below. GENERAL: Lying in bed comfortably HEENT: Normal CARDIOVASCULAR: Regular rate and rhythm. RESPIRATORY: Normal. ABDOMINAL: Soft nontender nondistended EXTREMITIES: Left lower extremity is well-perfused. Left heel ulcer showing improved granulation tissue. Incisions are clean, dry and intact with dayana in place. NEUROLOGICAL: Awake alert oriented x3 with no focal deficits. PSYCHOLOGICAL: Normal LABORATORY DATA: Please see below. MICROBIOLOGY: Please see below. ASSESSMENT AND PLAN: This is a 81-year-old female with left heel gangrene and nonhealing ulcer who underwent angiogram showing superficial femoral artery occlusion in the left lower extremity. Patient subsequently underwent a left femoral to above-knee Pop to artery bypass graft and now has good perfusion of the left lower extremity. Postoperatively the patient had acute renal failure with a history of chronic renal insufficiency, hyperkalemia and hyperglycemia. Patient has had resolution of her acute renal failure in her potassium and glucose are well controlled. PROBLEMS: 1. left lower extremity arterial efforts carotid occlusive disease and left heel ulcer: The bypass graft is functioning well with good perfusion of the left lower extremity. The patient requires debridement of her left heel ulcer which obese scheduled for 01/08/2017. 2. renal function: Stable with a creatinine of 1.2 today. 3. diabetes mellitus: This is well controlled. DISPOSITION: Possible transfer back to patient's nursing facility in 24-48 hours. VS, I&O, 24H, Fishbone Vital Signs/I&O Vital Signs Date Time Temp Pulse Resp B/P (MAP) Pulse Ox O2 Delivery O2 Flow Rate FiO2 01/07/17 14:00 98.3 64 18 156/70 (98) 95 Room Air 01/06/17 06:00 1.0 I&O- Last 24 Hours up to 6 AM 01/07/17 05:59 Intake Total 1320 ml Balance 1320 ml Laboratory Data 24H LABS Laboratory Tests 2 01/07/17 05:05: Anion Gap 7L, Glomerular Filtration Rate 45.1, Blood Urea Nitrogen 24H, Creatinine 1.22H, Sodium Level 145, Potassium Level 4.6, Chloride Level 108H, Carbon Dioxide Level 30, Calcium Level 7.8L CBC/BMP Laboratory Tests 01/07/17 05:05 Red Blood Count 2.70 L, Mean Corpuscular Volume 94.0, Mean Corpuscular Hemoglobin 31.9, Mean Corpuscular Hemoglobin Concent 33.9, Red Cell Distribution Width 13.6, Calcium Level 7.8 L Microbiology Microbiology 12/28/16 Wound Culture - Final, Complete Morganella Morganii Ssp Erasmo Enterococcus Faecalis Enterococcus Raffinosus [place] Shi MD Jan 07, 2017 18:31
[2017-01-07] MEDS: GABAPENTIN 100 MG CAP PO SCH (21:10)
[2017-01-07] MEDS: SIMVASTATIN 40 MG TAB PO SCH (21:11)
[2017-01-07 22:00] VITALS: BP 152/68
[2017-01-08] MEDS: PIPERACILLIN/TAZOBACTAM SOD 3.375 GM in D5W MINI-BAG PLUS 50 ML IV SCH ×4 (00:37→17:58)
[2017-01-08] MEDS: SODIUM CHLORIDE 0.9% INJ 10 ML SYR IV SCH ×2 (05:56→18:00)
[2017-01-08] MEDS: LEVOTHYROXINE 75MCG TABLET (0.075MG) PO SCH (05:57)
[2017-01-08] MEDS: DAKIN'S 0.25% HALF-STRENGTH SOLN 480 ML TOP SCH ×3 (05:58→22:00)
[2017-01-08 06:00] VITALS: BP 146/77
[2017-01-08 06:42] LABS: CALCIUM LEVEL 7.9 MG/DL (8.8-10.2); CREATININE FOR GFR 1.04 MG/DL (0.55-1.02); GLOMERULAR FILTRATION RATE 54.3 (>32); POTASSIUM SERUM 4.5 MEQ/L (3.5-5.1)
[2017-01-08] MEDS: HumaLOG INSULIN (NovoLOG) PER UNIT SC SCH ×4 (07:30→21:00)
[2017-01-08 08:21] VITALS: BP 160/78
[2017-01-08] MEDS: LEVEMIR (INSULIN DETEMIR) 1 UNITS/0.01ML SC SCH (08:57)
[2017-01-08] MEDS: SENOKOT S TAB PO SCH (09:00)
[2017-01-08] MEDS ORDERED: D5W/0.45% SODIUM CHLORIDE 1,000 ML IV SCH (09:00)
[2017-01-08] MEDS: METOPROLOL TART 25 MG TABLET PO SCH ×2 (09:16→21:00)
[2017-01-08] MEDS: ASPIRIN ENTERIC 325 MG TAB PO SCH (09:16)
[2017-01-08] MEDS: ACETAMINOPHEN TAB 650MG DOSE (2X325MG) PO SCH ×2 (09:16→22:28)
[2017-01-08 13:31] LABS: MEAN CORPUSCULAR HEMOGLOBIN 30.9 pg (27.0-33.0); MEAN CORPUSCULAR HGB CONC 32.6 g/dl (32.0-36.5); MEAN CORPUSCULAR VOLUME 94.8 fl (80.0-96.0); RED CELL DISTRIBUTION WIDTH 13.9 % (11.5-14.5); WHITE BLOOD COUNT 6.9 K/mm3 (4.0-10.0)
[2017-01-08 14:00] VITALS: BP 147/76
[2017-01-08] MEDS ORDERED: MIDAZOLAM INJ 2 MG/2 ML VIAL (J2250) As Ordered ONE (16:06)
[2017-01-08] MEDS ORDERED: fentaNYL 100 MCG/2 ML INJECTION (J3010) As Ordered ONE (16:06)
[2017-01-08] MEDS ORDERED: PROPOFOL 200 MG/20 ML VIAL As Ordered ONE (16:06)
[2017-01-08] MEDS: GENTAMICIN SULF INJ 80MG/2ML VIAL (J1580) As Ordered ONE (16:20)
[2017-01-08 17:00] VITALS: BP 125/60
[2017-01-08] MEDS ORDERED: LR 1,000 ML IV SCH (17:00)
[2017-01-08] MEDS ORDERED: fentaNYL 100 MCG/2 ML INJECTION (J3010) IV PRN (17:00)
[2017-01-08] MEDS: glipiZIDE XL 5 MG TABCR PO SCH (17:58)
[2017-01-08] MEDS: NORCO, ANEXSIA 5/325MG TABLET (HYDROcodone/ACETAMINOPHEN) PO PRN (17:59)
--- NOTE | 2017-01-08 20:57 | IPNPDOC ---
Date Seen The patient was seen on 01/08/17. Progress Note SUBJECTIVE: Patient is without complaints. Patient underwent left heel debridement today. OBJECTIVE PHYSICAL EXAMINATION: VITAL SIGNS: Please see below. GENERAL: Lying in bed comfortably HEENT: Normal CARDIOVASCULAR: Rate and rhythm. RESPIRATORY: Clear To auscultation bilaterally. ABDOMINAL: Soft nontender nondistended with no palpable pulsatile mass EXTREMITIES: Left lower Ann's well-perfused incisions are healing well left heel shows good granulation tissue with improved healing NEUROLOGICAL: Awake alert oriented 3 with no focal deficits PSYCHOLOGICAL: Normal LABORATORY DATA: Please see below. MICROBIOLOGY: Please see below. 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 The patient underwent a femoral to palpatory bypass and now has better perfusion of the left lower extremity and the left heel wound is starting to heal. PROBLEMS: 1. Left lower extremity ischemia and heel wound: And is status post left femoral to popliteal artery bypass graft with good signs of healing in the left heel wound.. 2. Acute renal failure: Resolved. 3. Diabetes mellitus: Sugars are better controlled. DISPOSITION: Patient is stable for discharge back to her facility possibly in the next 24 hours.. VS, I&O, 24H, [facility] Vital Signs/I&O Vital Signs Date Time Temp Pulse Resp B/P (MAP) Pulse Ox O2 Delivery O2 Flow Rate FiO2 01/08/17 18:29 18 Nasal Cannula 1.0 01/08/17 17:20 58 144/65 (91) 100 01/08/17 17:05 96.5 I&O- Last 24 Hours up to 6 AM 01/08/17 05:59 Intake Total 1360 ml Output Total 800 ml Balance 560 ml Laboratory Data 24H LABS Laboratory Tests 2 01/08/17 06:04: Anion Gap 8, Glomerular Filtration Rate 54.3, Blood Urea Nitrogen 21H, Creatinine 1.04H, Sodium Level 145, Potassium Level 4.5, Chloride Level 109H, Carbon Dioxide Level 28, Calcium Level 7.9L 01/08/17 16:45: Bedside Glucose (Misc Panel) 145H CBC/BMP Laboratory Tests 01/08/17 06:04 Calcium Level 7.9 L 01/08/17 13:24 Red Blood Count 2.87 L, Mean Corpuscular Volume 94.8, Mean Corpuscular Hemoglobin 30.9, Mean Corpuscular Hemoglobin Concent 32.6, Red Cell Distribution Width 13.9 Dallas Shi MD Jan 08, 2017 20:57
[2017-01-08] MEDS: GABAPENTIN 100 MG CAP PO SCH (21:00)
[2017-01-08] MEDS: SIMVASTATIN 40 MG TAB PO SCH (21:00)
--- NOTE | 2017-01-08 21:18 | RO ---
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 PROCEDURE: Debridement of left heel wound with excisional debridement of skin, subcutaneous tissue and muscle, pulse irrigation of the left heel wound. SURGEON: Dr. Andre Shi STONE DRILLER HELPER: None. ANESTHESIA: MAC. ESTIMATED BLOOD LOSS: 10 mL. IV FLUID: 300 mL. SPECIMEN: Deep tissue culture and sensitivity. COMPLICATIONS: None. DRAINS: None. IMPLANTS: None. INDICATION: The patient is an 81-year-old female with a nonhealing left heel wound, which has been present for over 1 year. The patient underwent an angiogram, which showed superficial femoral arterial occlusion, and the patient also has gangrene, foul-smelling tissue surrounding the exposed calcaneus in the heel wound. The patient will undergo debridement. Risks, benefits and alternative treatment options were discussed with the patient. Benefits included but were not limited to removal of nonviable tissue with improved chance of healing. Alternative treatment options included but were not limited to no intervention. Risks included but were not limited to infection, bleeding, renal failure requiring hemodialysis, possible need for further open surgical intervention, possible need for amputation, cerebrovascular accident, myocardial infarction, pulmonary embolus, deep vein thrombosis (DVT), loss of limb, loss of life and poor outcome. Patient's questions were answered. The patient voices understanding of these risks, benefits and alternative treatment options. The patient agrees to proceed with left heel debridement and accepts the associated risks. DESCRIPTION OF PROCEDURE: The patient was taken to the operating room, placed supine on the operating room table, and the left foot was prepped and draped in a standard surgical fashion. A time-out was then conducted by myself and the team members within the room, confirming the correct patient, procedure and laterality. The wound underwent excisional debridement with Metzenbaum scissors, scalpel and pickups with removal of all nonviable tissue in the left heel. There was a pocket of necrotic tissue extending into the calf, which was sharply debrided with removal of skin, subcutaneous tissue and muscle. The exposed bone was clean. The edges of the wound showed necrotic gangrenous tissue, which was also debrided sharply. After the wound had been debrided down to healthy bleeding tissue, with removal of all nonviable tissue, the wound was dressed with a wet-to-dry dressing. The patient tolerated the procedure well. All instrument, sponge and needle counts were correct at the end of the case. There were no complications. Dr. Shi was present for and directed the entire case. The patient was transferred to the recovery room, awake, alert, extubated and in stable condition.
--- NOTE | 2017-01-08 21:50 | RO ---
DATE OF PROCEDURE: 12/31/2016 PREOPERATIVE DIAGNOSIS Nonhealing left heel ulcer with gangrene and exposed calcaneus, nonhealing left first toe ulcer, superficial femoral arterial occlusion. POSTOPERATIVE DIAGNOSIS: Nonhealing left heel ulcer with gangrene and exposed calcaneus, nonhealing left first toe ulcer, superficial femoral arterial occlusion. PROCEDURE: Left external iliac artery endarterectomy, left common femoral artery endarterectomy, left external iliac artery to common femoral artery bypass graft with 6 mm polytetrafluoroethylene (PTFE) graft, left femoral to above-knee popliteal artery bypass graft with 6 mm PTFE graft. SURGEON: Dr. Andre Shi HIGH SCHOOL COMPUTER SCIENCE TEACHER: None. ANESTHESIA: General endotracheal. ESTIMATED BLOOD LOSS: 450 mL. IV FLUID: 2100 mL. HEPARIN: 10,000 units. COMPLICATIONS: None. DRAINS: None. SPECIMENS: Left common femoral and external iliac artery plaque. IMPLANTS: 6 mm PTFE graft from the left external iliac artery to the left common femoral artery and then from the bypass graft from the left external iliac artery to the common femoral artery, to the above-knee popliteal artery. INDICATION: The patient is an 81-year-old female with left heel ulcer with gangrene and left first toe ulcer with gangrene as well. The patient underwent an angiogram showing occlusion of her superficial femoral artery. The options were discussed with the patient who decided to proceed with a left femoral to popliteal artery bypass graft. Other options discussed with the patient were no intervention or amputation. Risks, benefits and alternative treatment options were discussed with the patient. Benefits included but were not limited to latter-day of blood flow to the left lower extremity with healing of her wounds and resolution of her pain. Alternative treatment options included but were not limited to no intervention. Risks included but were not limited to infection, bleeding, renal failure require hemodialysis, possible need for further open surgical intervention, possible need for amputation, cerebrovascular accident, myocardial infarction, pulmonary embolism, deep vein thrombosis (DVT), loss of limb, loss of life and poor outcome. Patient voices understanding of these risks, benefits and alternative treatment options. All her questions were answered. The patient agrees to proceed with a left femoral to popliteal artery bypass and accepts the associated risks. DESCRIPTION OF PROCEDURE: The patient was taken to the operating room, placed supine on the operating room table and then prepped and draped in a standard surgical fashion. A time-out was then conducted by myself and the team members in the room, confirming the correct procedure, patient and laterality. An incision was then obliquely in the inguinal region exposing the common femoral artery, which was noted to be extensively calcified. The common femoral artery was sharply dissected proximally and distally and encircled with vessel loops. The above-knee popliteal artery was then exposed through an incision in the above-knee region, and this was also sharply dissected free and encircled with vessel loops. The common femoral artery was clamped proximally and distally and an arteriotomy made, and upon entering into the vessel, there was a significant amount of calcific occlusive plaque, which required endarterectomy. During the endarterectomy, the vessel was thinned out and extremely frail and the endarterectomy was carried up into the external iliac artery. Once the endarterectomy was completed, the viability of the distal external iliac artery and the common femoral artery were poor and a decision was made to perform a bypass in an end-to-end fashion from the left external iliac artery to the left common femoral artery. There was good flow noted through the graft at the completion of the anastomoses. The graft was then clamped proximally and distally, an arteriotomy was made and a 6 mm PTFE graft, which had been tunneled from the above-knee popliteal artery incision to the femoral incision, was then anastomosed to the graft from the external iliac artery to the common femoral artery in an end-to-side fashion using #6-0 Prolene suture. The graft was then anastomosed to the popliteal artery in an end-to-side fashion using #6-0 Prolene suture. Flow was reestablished through the common femoral artery bypass graft and into the femoral to popliteal artery bypass graft with good flow noted. With Doppler ultrasound, the popliteal artery showed monophasic flow with the graft clamped, and there was biphasic flow noted with the graft released. Hemostasis was obtained after which the incisions were closed using #2-0 Vicryl to approximate the deeper layers and dayana to approximate the skin. Dressings were then applied. The patient tolerated the procedure well. All instrument, sponge and needle counts were correct at the end of the case. There were no complications. Dr. Shi was present for and directed the entire case. The patient was transferred to the recovery room, awake, alert, extubated and in stable condition.
[2017-01-08 22:00] VITALS: BP 153/72
[2017-01-09] MEDS: PIPERACILLIN/TAZOBACTAM SOD 3.375 GM in D5W MINI-BAG PLUS 50 ML IV SCH ×3 (00:54→12:28)
[2017-01-09] MEDS: NORCO, ANEXSIA 5/325MG TABLET (HYDROcodone/ACETAMINOPHEN) PO PRN ×2 (03:01→12:29)
[2017-01-09 06:00] VITALS: BP 158/74
[2017-01-09] MEDS: DAKIN'S 0.25% HALF-STRENGTH SOLN 480 ML TOP SCH ×2 (06:00→13:19)
[2017-01-09] MEDS: LEVOTHYROXINE 75MCG TABLET (0.075MG) PO SCH (06:39)
[2017-01-09] MEDS: SODIUM CHLORIDE 0.9% INJ 10 ML SYR IV SCH (06:39)
--- NOTE | 2017-01-09 07:45 | RO ---
DATE OF PROCEDURE: 01/08/2017 PREOPERATIVE DIAGNOSIS: Left heel wound with gangrene. POSTOPERATIVE DIAGNOSIS: Left heel wound with gangrene. PROCEDURE: Left heel excisional debridement with removal of skin, subcutaneous tissue and muscle. Pulse irrigation of left heel wound. ATTENDING SURGEON: Dallas Shi MD SHIRT TRIMMER: None. ANESTHESIA: Monitored anesthesia care (MAC). ESTIMATED BLOOD LOSS: 15 mL. INTRAVENOUS (IV) FLUID: 50 mL. SPECIMEN: None. COMPLICATIONS: None. DRAINS: None. IMPLANTS: None. INDICATION: The patient is an 81-year-old female who presented with gangrene and necrosis of the tissue in the left heel who underwent angiography with subsequent femoral to popliteal artery bypass graft and now has good healing of the wound and good perfusion of her left foot. The patient does have some small areas of necrosis that require debridement. Patient will go undergo debridement of her left heel wound. Risks, benefits and alternative treatment options were discussed with the patient. Benefits included but were not limited to removal of nonviable tissue with improved healing. Potential alternative treatment options included but were not limited to no intervention. Risks included but were not limited to infection, bleeding, possible need for further surgical intervention, renal failure requiring hemodialysis, loss of limb, loss of life, cerebrovascular accident, myocardial infarction, pulmonary embolus, deep vein thrombosis (DVT), and poor outcome. Patient understands, accepts these risks and consents to proceed. All the patient's questions were answered. The patient voices understanding of these risks, benefits and alternative treatment options. The patient agrees to proceed with the left heel debridement with associated risks. DESCRIPTION OF PROCEDURE: The patient was taken to the operating room, placed supine on the operating room table and the left foot was prepped and draped in a standard surgical fashion. The tissue on the left heel that was nonviable was then debrided sharply using Metzenbaum scissors, scalpel and pickups with removal of skin, subcutaneous tissue and muscle. There was a large amount of new granulation tissue since her previous debridement and status post her left femoral popliteal artery bypass graft with much less exposed bone. Once all the nonviable tissue was debrided, the wound underwent pulse irrigation, after which, a wet-to-dry dressing was applied. Patient tolerated the procedure well. All instrument, sponge and needle counts were correct at the end of the case. There were no complications. Dr. Jose Guadalupe was present for and directed the entire case. Patient was transferred to the recovery room, awake, alert, extubated and in stable condition.
--- NOTE | 2017-01-09 08:43 | REPKIM ---
DATE OF PROCEDURE: 12/27/2016 PREPROCEDURE DIAGNOSIS: Nonhealing left heel ulcer, left lower extremity venous insufficiency. POSTPROCEDURE DIAGNOSIS: Nonhealing left heel ulcer, left lower extremity venous insufficiency. Left superficial femoral arterial atherosclerotic occlusive disease with occlusion of the femoral artery, left renal artery stenosis. PROCEDURE: Aortogram, iliofemoral angiogram, selective left common femoral artery8 catheter placement with left lower extremity angiogram, Mynx closure of the right common femoral arteriotomy with a #5-Barbadian Mynx closure device. SURGEON: Dr. Guanaco Shi. NEUROPSYCHOLOGY DIVISION CHIEF: Boston Madrid and Gloria Gutierrez, RT ANESTHESIA: Local with sedation with 1 mg of Versed, 50 mcg fentanyl and 10 mL of 2% lidocaine. FLUORO TIME: 2.0 minutes. CONTRAST: 26 mL. SEDATION TIME: From 11:30 a.m. to 12:05 p.m. with the sedation and cardiopulmonary monitoring performed by the nurse in the room under my direct supervision and direction. I was present for and directed the entire care. HEPARIN: None. PROTAMINE: None. COMPLICATION: None. DRAINS: None. SPECIMENS: None. IMPLANTS: Right femoral arterial Mynx closure device. INDICATION: The patient is an 81-year-old female with nonhealing left heel ulcer with exposed calcaneus and gangrene and necrotic tissue in the left heel as well as a left first toe dry gangrene ulcer. The patient has nonpalpable pulses and was evaluated and with undergo a left lower extremity angiogram with possible angioplasty and/or stent. Risks, benefits, and alternative treatment options were discussed with the patient. The benefits included but were not limited to resolution of atherosclerotic occlusive disease with restorationism of blood flow to the left foot with healing of her ulcers and resolution of her pain. Alternative treatments options included but were not limited to no intervention. Risks included but were not limited to infection, bleeding, renal failure requiring hemodialysis possible for open surgical intervention, retroperitoneal hematoma, cerebrovascular accident. Myocardial infarction, pulmonary embolus, deep venous thrombosis, loss of limb, loss of life and poor outcome. The patient understands and accepts these risks and consents to proceed. All the patient's questions were answered. The patient voices understanding of these risks, benefits and alterative treatment options. DESCRIPTION OF PROCEDURE: The patient was taken to the angiography suite and placed supine on the angiography room table and then prepped and draped in the standard surgical fashion. The right common femoral artery was cannulated with a micropuncture needle after anesthetizing the overlying skin with 1% Lidocaine. A micropuncture wire was advanced to the micropuncture needle, which was up-sized to a micropuncture sheath. A Bentson wire was advanced through the micropuncture sheath, which was up-sized to a #5-Barbadian sheath. An Omni Flush catheter was then placed in the aorta and an aortogram was performed. The catheter was pulled down to the level of the iliac arteries and a iliofemoral angiogram was performed. The catheter was directed over the bifurcation of the iliac arteries, placed in the left common femoral artery and a left lower extremity angiogram was performed. The catheter was then removed over a Bentson wire and a Mynx closure device was used to close the arteriotomy and the right common femoral artery with an additional 10 minutes of adjunctive pressure applied for hemostasis. Dressing were then applied. The patient tolerated the procedure well. All instruments, sponge and needle counts were correct at the end of the case. There were no complications. Dr. Shi was present for and directed the entire case. The patient was transferred to the holding area and subsequently admitted to the hospital for debridement of her left heel ulcer. Radiologic supervision interpretation of the initial aortogram showed the aorta to be patent in the suprarenal aorta. The superior mesenteric and celiac arteries were calcified but patent. The left renal artery showed an approximate 90% stenosis. The right renal artery showed approximately 40% stenosis. The infrarenal aorta showed calcific plaquing but was patent. The inferior mesenteric artery was patent. The common iliac arteries bilaterally were patent on the right side. The right external and internal iliac artery were patent as well as the right common femoral artery. There was no visualization below the puncture site on the right lower extremity. The left common iliac, external and internal iliac arteries are patent. The left internal iliac artery was small and diseased distally. T he left common femoral artery was patent as well as the profunda femoris artery. There was occlusion of the superficial femoral artery on the left at its origin. There was reconstitution of the above knee popliteal artery via collaterals from the profunda femoris artery with peroneal runoff into the foot. The posterior tibial and anterior tibial arteries were not visualized in the upper calf and at the ankle, there was reconstitution of the dorsalis pedis and posterior tibial arteries via the peroneal artery. A Mynx closure device was used to close the arteriotomy in the right common femoral.
[2017-01-09] MEDS: ACETAMINOPHEN TAB 650MG DOSE (2X325MG) PO SCH (08:51)
[2017-01-09] MEDS: ASPIRIN ENTERIC 325 MG TAB PO SCH (08:51)
[2017-01-09 08:52] VITALS: BP 158/74
[2017-01-09] MEDS: SENOKOT S TAB PO SCH (08:52)
[2017-01-09] MEDS: METOPROLOL TART 25 MG TABLET PO SCH (08:52)
[2017-01-09] MEDS: SODIUM CHLORIDE 0.9% INJ 10 ML SYR IV PRN (08:53)
[2017-01-09] MEDS: LEVEMIR (INSULIN DETEMIR) 1 UNITS/0.01ML SC SCH (08:55)
[2017-01-09] MEDS: HumaLOG INSULIN (NovoLOG) PER UNIT SC SCH ×2 (08:56→12:28)
--- NOTE | 2017-01-09 14:44 | DS.PDOC ---
Discharge Summary General Date of Admission Dec 27, 2016 at 12:49 Date of Discharge 01/09/2017 Attending Physician: Dallas Shi MD Discharge Summary PROCEDURES PERFORMED DURING STAY: Left lower extremity angiogram. Left heel debridement 2. Left femoral to popliteal artery bypass graft with left femoral and external iliac artery endarterectomy ADMITTING DIAGNOSES: 1. Gangrene of the left heel. 2. Left superficial femoral arterial occlusion. 3. Diabetes mellitus. DISCHARGE DIAGNOSES: 1. Gangrene of the left heel. 2. Left superficial femoral arterial occlusion. 3. Diabetes mellitus. COMPLICATIONS/CHIEF COMPLAINT: Gangrene, L Heel Cellulitis. HISTORY OF PRESENT ILLNESS: Patient was admitted after undergoing an angiogram showing a left superficial femoral artery occlusion and noting gangrene with necrotic tissue in the left heel wound. HOSPITAL COURSE: Patient was admitted after her angiogram and underwent a left heel debridement and subsequent left femoral to popliteal artery bypass graft with left femoral and next iliac artery endarterectomy. Patient subsequently underwent a second debridement of her left heel which showed good granulation tissue and coverage of the bone. Patient postoperatively had acute renal failure and hyperkalemia for which a nephrology consult was obtained these have subsequently resolved. Patient also had poor glucose control postoperatively and this has also resolved. Patient is now stable and ready for discharge back to [facility]. DISCHARGE MEDICATIONS: Please see below. ALLERGIES: Please see below. PHYSICAL EXAMINATION ON DISCHARGE: VITAL SIGNS: Please see below. GENERAL: Lying in bed comfortably HEENT: Normal NECK: Supple with no carotid bruits CARDIOVASCULAR EXAMINATION: Regular rate and rhythm RESPIRATORY EXAMINATION: Clear to auscultation bilaterally ABDOMINAL EXAMINATION: Soft nontender nondistended EXTREMITIES: Left lower extremity is well perfused. Left heel ulcer is showing good signs of healing with new granulation tissue and coverage of the previously exposed calcaneus. Incisions are stable. SKIN: Warm well perfused with no obvious lesions or masses NEUROLOGICAL EXAMINATION: Awake alert oriented 3 PSYCHIATRIC EXAMINATION: Normal LABORATORY DATA: Please see below. PROGNOSIS: Good ACTIVITY: As tolerated. DIET: Diabetic diet. DISCHARGE PLAN: She will be discharged back to the senior living with follow-up at the wound care clinic for continued left heel wound care. DISPOSITION: Transfer back to [facility]. DISCHARGE INSTRUCTIONS: 1. Patient will continue with left wound care with wet-to-dry Dakin's dressings until seen by the wound care clinic. 2. Patient will follow up with her primary care for continued glucose control. 3. Patient will follow-up in my office in 1 week. ITEMS TO FOLLOWUP ON ON OUTPATIENT: 1. Ambulation and physical therapy. 2. Left heel wound and left first toe wound. 3. Aggressive glucose control. DISCHARGE CONDITION: Stable. TIME SPENT ON DISCHARGE: Greater than 45 minutes. Vital Signs/I&Os Vital Signs Date Time Temp Pulse Resp B/P (MAP) Pulse Ox O2 Delivery O2 Flow Rate FiO2 01/09/17 12:59 18 Room Air 01/09/17 10:00 95 01/09/17 08:52 57 158/74 01/09/17 06:00 96.7 1.0 I&O- Last 24 Hours up to 6 AM 01/09/17 05:59 Intake Total 1075 ml Output Total 365 ml Balance 710 ml Laboratory Data Labs 24H Laboratory Tests 2 01/08/17 16:45: Bedside Glucose (Misc Panel) 145H 01/08/17 20:43: Bedside Glucose (Misc Panel) 243H 01/09/17 06:02: Bedside Glucose (Misc Panel) 199H 01/09/17 11:43: Bedside Glucose (Misc Panel) 190H FSBS Laboratory Tests Test 01/08/17 16:45 01/08/17 20:43 01/09/17 06:02 01/09/17 11:43 Range/Units Bedside Glucose (Misc Panel) 145 243 199 190 83-110 MG/DL Discharge Medications Scheduled Acetaminophen (Tylenol) 325 Mg Tab, 650 MG PO BID, (Reported) Aspirin (Aspirin EC) 325 Mg Tabec, 325 MG PO DAILY, (Reported) Docusate Sod/Senna (Senna S 8.6-50 mg) 1 Tab Tab, 1 TAB PO DAILY, (Reported) Furosemide (Furosemide) 40 Mg Tab, 40 MG PO BID, (Reported) Gabapentin (Gabapentin) 100 Mg Cap, 200 MG PO QHS, (Reported) Glipizide (Glipizide) 5 Mg Tab, 5 MG PO DAILY, (Reported) Insulin Glargine (Lantus) 1 Units/0.01 Ml Susp, 40 UNITS SC QHS, (Reported) Insulin Human Lispro (Humalog) 1 Units/0.01 Ml Inj, 0 SC TID, (Reported) PER SLIDING SCALE Levothyroxine Sodium (Levoxyl) 75 Mcg Tab, 75 MCG PO DAILY, (Reported) Lisinopril (Lisinopril) 5 Mg Tab, 5 MG PO DAILY, (Reported) Metoprolol Tartrate (Metoprolol Tartrate) 25 Mg Tab, 25 MG PO BID, (Reported) Simvastatin - High Dose (Zocor) 40 Mg Tab, 40 MG PO QHS, (Reported) Spironolactone (Spironolactone) 25 Mg Tab, 25 MG PO DAILY, (Reported) Allergies Coded Allergies: NUTS (Verified Allergy, Severe, Throat Closes , 12/27/16) Ciprofloxacin (Verified Allergy, Intermediate, rash , 12/27/16) Dallas Shi MD Jan 09, 2017 14:44
--- NOTE | 2017-01-14 13:43 | IPN ---
DATE: 01/03/2017 SUBJECTIVE: Patient was seen and examined at the bedside today morning in the intensive care unit (ICU). Patient reports that she is feeling better. Her renal function is improving. Diabetes is also better controlled with the Levemir and insulin sliding scale. Patient is afebrile and hemodynamically stable. REVIEW OF SYSTEMS: Patient denies any fever, chills, rigors, headache, nausea, vomiting, chest pain, shortness of breath, pain in abdomen, constipation, diarrhea. Patient reports her left leg pain is optimized at this time. Rest of review of systems is negative. OBJECTIVE: Vital signs: Temperature is 96.7 degrees Fahrenheit, blood pressure is 130/60, pulse is 68, respiratory rate of 14, saturating 100% on nasal cannula. Intake and output: Urine output recorded is 1.9 liters yesterday, 880 mL so far today since overnight. Weight in the bed scale is 106 kg. PHYSICAL EXAMINATION: GENERAL: Patient is awake, alert, oriented times three, lying in bed. No apparent distress. HEAD AND NECK: Extraocular muscles intact. Pupils equally round and reactive to light. Mucous membranes are moist. Neck is supple. There is no jugular venous distention (JVD). CARDIOVASCULAR: S1, S2, regular rate. No murmur, rub, or gallop. RESPIRATORY: Chest is clear to auscultation bilaterally. Bilateral equal air entry. No rales or rhonchi. ABDOMEN: Soft, obese. Positive bowel sounds. No organomegaly. GENITOURINARY: Patient has an indwelling Martin catheter. MUSCULOSKELETAL: Patient has a dressing in the left groin, and she has a dressing over the left foot from recent surgery and debridement. CENTRAL NERVOUS SYSTEM: No focal neurologic deficit. Power is 5/5 in bilateral upper extremities. PSYCHIATRIC: Normal mood and affect. LABORATORY REVIEW: CBC showed a WBC 8.9, hemoglobin 8.5, platelets are 268. BMP showed sodium 142, potassium 4.6, chloride 107, bicarbonate 28, BUN 36, creatinine is 1.5. It was 1.8 yesterday. Glucose was 196, calcium was 8.1. CURRENT INPATIENT MEDICATIONS: Patient's medications were all reviewed by me. She continues to be on intravenous (IV) antibiotic at this time. She is currently on Levemir 40 units subcutaneous daily and insulin sliding scale. They were started yesterday. There is no other change in the medications today as compared with yesterday. ASSESSMENT: An 81-year-old female with past medical history of diabetes mellitus, type 2, peripheral vascular disease, chronic kidney disease, stage III, coronary artery disease, history of congestive heart failure in the past, admitted at this time because of ischemia and gangrene of left foot, status post femoral-popliteal bypass on the left side and debridement of the left foot ulcer. Nephrology service following the patient for management of acute kidney injury, hyperkalemia, and diabetes mellitus, type 2. RECOMMENDATIONS AND PLAN: 1. Acute kidney injury superimposed on chronic kidney disease, stage III. Patient's renal function is systematically improving. Her urine output is improving. Her creatinine is down to 1.5. Continue to monitor for improvement. Avoid the use of angiotensin-converting enzyme (SHARIFA) inhibitors at this time, and diuretics are also on hold. 2. Hypertension. Blood pressure is acceptable at this time. Continue current dose of metoprolol 25 mg by mouth twice a day. 3. Insulin-dependent diabetes mellitus, type 2, and hyperglycemia. Patient was started on Levemir 40 units subcutaneous and insulin sliding scale. If patient's blood sugars stay high above 200s, Levemir dose will be increased tomorrow morning. 4. Hypothyroidism. Continue current dose of levothyroxine 75 mcg daily. 5. History of ischemia cardiomyopathy. Continue aspirin. Diuretics are on hold because of acute renal failure. Volume status is optimized. Patient is not on any IV fluids at this time. 6. Acute blood loss anemia. Patient's hemoglobin is stable at 8.5. Continue to monitor for now. No need of further blood transfusion at this time. 7. Gangrene and cellulitis of the left foot, status post left femoral- popliteal bypass. Management is as per surgical service. Continue IV Zosyn at this time. Plan of care was discussed with the patient's RN at the bedside today morning in the ICU. KIM
== END 2017-01-09 14:48 | DRG 271 ==
LOC: M IRPRO 10:13 → M MS5PR 12:49 → M ICU 12-31 19:58 → M MSPAV 01-04 16:00
PROVIDERS: ADMIT Surgery Vascular Surgery; ATTEND Surgery Vascular Surgery
PROC: 0KBW0ZZ Excision of Left Foot Muscle, Open Approach (ICD-10-PCS; 2016-12-28)
PROC: 04CL0ZZ Extirpation of Matter from Left Femoral Artery, Open Approach (ICD-10-PCS; 2016-12-31)
PROC: 041L0JL Bypass Left Femoral Artery to Popliteal Artery with Synthetic Substitute, Open Approach (ICD-10-PCS; 2016-12-31)
PROC: 041J0JJ Bypass Left External Iliac Artery to Left Femoral Artery with Synthetic Substitute, Open Approach (ICD-10-PCS; 2016-12-31)
PROC: 04CJ0ZZ Extirpation of Matter from Left External Iliac Artery, Open Approach (ICD-10-PCS; principal; 2016-12-31 16:00)
PROC: 30253N1 (ICD-10-PCS; 2017-01-01)
PROC: 0KBW0ZZ Excision of Left Foot Muscle, Open Approach (ICD-10-PCS; 2017-01-08)
DX: E11.52 Type 2 diabetes mellitus with diabetic peripheral angiopathy with gangrene (principal); L03.116 Cellulitis of left lower limb; N17.9 Acute kidney failure, unspecified; D62 Acute posthemorrhagic anemia; L97.424 Non-pressure chronic ulcer of left heel and midfoot with necrosis of bone; I13.0 Hypertensive heart and chronic kidney disease with heart failure and stage 1 through stage 4 chronic kidney disease, or unspecified chronic kidney disease; I70.64 Atherosclerosis of nonbiological bypass graft(s) of the left leg with ulceration; E55.9 Vitamin D deficiency, unspecified; I25.5 Ischemic cardiomyopathy; E11.621 Type 2 diabetes mellitus with foot ulcer; Z66 Do not resuscitate; L97.529 Non-pressure chronic ulcer of other part of left foot with unspecified severity; Z88.1 Allergy status to other antibiotic agents; E87.5 Hyperkalemia; H54.8 Legal blindness, as defined in USA; I25.10 Atherosclerotic heart disease of native coronary artery without angina pectoris; R32 Unspecified urinary incontinence; E11.65 Type 2 diabetes mellitus with hyperglycemia; I25.2 Old myocardial infarction; I50.9 Heart failure, unspecified; N18.3 Chronic kidney disease, stage 3 (moderate); E11.22 Type 2 diabetes mellitus with diabetic chronic kidney disease; E03.9 Hypothyroidism, unspecified; F32.9 Major depressive disorder, single episode, unspecified; F41.9 Anxiety disorder, unspecified; Z95.1 Presence of aortocoronary bypass graft; K59.00 Constipation, unspecified; Z91.018 Allergy to other foods; Z79.4 Long term (current) use of insulin; Z79.899 Other long term (current) drug therapy

== ENCOUNTER → 2018-05-15 | Outpatient (CLI) | payer MEDICARE, MEDICAID ==
[~2018-05-15] MED LIST changes: +ASPI325T25 PO; +FURO40TA2 PO; +GABA-1171 PO; +GLIP5TAB8 PO; +INSUHUMDS SC; +INSULANT SC; +LEVO75TA34 PO; +LISI-542 PO; +METO25TA4 PO; -PROTAMINE SULF INJ 50 MG/5 ML VIAL (J2720) As Ordered ONE; +SENN8.6T7 PO; +SPIR-10 PO; +TYLE325T5 PO; +ZOCO40TA PO
--- NOTE | 2018-06-02 10:00 | REPIR ---
DATE OF PROCEDURE: 05/15/2018 ATTENDING SURGEON: Dr. Andre Shi ASSISTANTS: Mary Elliott and Rhonda Urban. PREOPERATIVE DIAGNOSES: Nonhealing right lower extremity ulcerations, diabetes mellitus. POSTOPERATIVE DIAGNOSES: Nonhealing right lower extremity ulcerations, diabetes mellitus. PROCEDURE: Ultrasound-guided left common femoral arterial cannulation aortogram, iliofemoral angiogram, selective right common femoral arterial catheter placement with right lower extremity angiogram, selective right profunda femoris artery catheter placement with right lower extremity angiogram, Mynx closure of the left common femoral arteriotomy. INDICATIONS: The patient is an 82-year-old female with diabetes mellitus and nonhealing right lower extremity ulcers, who will undergo angiogram with possible angioplasty stent and/or atherectomy. Risks, benefits and alternative treatment options were discussed with the patient. ANESTHESIA: Local with sedation 1 mg Versed, 50 mcg of fentanyl and 10 mL of 2% lidocaine. FLUOROSCOPIC TIME: 2.1 minutes. CONTRAST: 12 mL of Isovue-300. SEDATION TIME: 10:23 a.m. to 11:05 a.m. for a total of 42 minutes. The patient was administered by the registered nurse in the room. The cardiopulmonary monitoring was performed by the registered nurse in the room. The sedation was administered and the cardiopulmonary monitoring was performed under my direct supervision. I was present for and directed the entire case. The patient had no sedation related complications and returned to pre-sedation levels at the completion of the procedure. COMPLICATIONS: None. DRAINS: None. SPECIMENS: None. IMPLANTS: Left common femoral arteriotomy closure with a Mynx closure device. DESCRIPTION OF PROCEDURE: The patient was taken to the angiography suite, placed supine on the angiography room table and then prepped and draped in a standard surgical fashion. The left common femoral artery was cannulated with a micropuncture needle after anesthetizing the overlying skin with 2% lidocaine. The micropuncture wire was advanced to the micropuncture needle, which was upsized to a micropuncture sheath. A Bentson wire was advanced to the micropuncture sheath, which was upsized to 5-Azeri sheath. An Omni flush catheter was placed in the aorta and aortogram was performed. The catheter was pulled down to the of level bifurcation iliac arteries and an iliofemoral angiogram was performed. The catheter was directed over the bifurcation, placed in the right common femoral artery and a right lower extremity angiogram was performed. The catheter was then advanced into the profunda femoris artery and a right lower extremity angiogram was performed. The catheter was then removed over a Bentson wire and a Mynx closure device was used to close the arteriotomy in the left common femoral artery with an additional 10 minutes of adjunctive pressure applied for hemostasis. Dressings were then applied. The patient tolerated the procedure well. All instrument, sponge and needle counts were correct at the end the case. There were no complications. Dr. Shi was present for and directed the entire case. The patient was transferred to the holding area and subsequently discharged in stable condition.
== END | disposition home or self-care (01) ==
LOC: M IRPRO 08:21
PROVIDERS: ATTEND Surgery Vascular Surgery
DX: E11.622 Type 2 diabetes mellitus with other skin ulcer (principal); L98.499 Non-pressure chronic ulcer of skin of other sites with unspecified severity
CPT/HCPCS: 36247; 75710; 99152; 99153; C1760; C1769; C1887; C1894; G0269; J2250; J3010; Q9967